=== PATIENT | female | born 1960 | race Caucasian/White ===

== ENCOUNTER 2022-12-19 12:31 | Outpatient (OUT) | payer OTHER, SELFPAY | END 2022-12-19 12:32 | disposition home or self-care (01) | LOC: PST 12:32 | PROVIDERS: PCP Family Medicine; Visit Provider Surgery | DX: Z01.818 Encounter for other preprocedural examination (principal); Z12.11 Encounter for screening for malignant neoplasm of colon ==

== ENCOUNTER 2022-12-21 09:29 | Outpatient (OUT) | payer OTHER, SELFPAY ==
--- NOTE | 2022-12-21 | MM_ITS ---
Patient: DELANO MCCORD Exam Date: 12/21/2022 : 1960 Gender:F Ordering : DR Marium Young M.D. Admission #: [id number] Family : Order #: [id number] CLICK HERE TO VIEW EXAM RADIOLOGY REPORT PROCEDURE: MM TOMOSYNTHESIS SCREENING BI COMPARISON: None. INDICATIONS: screening Calculator Name NCI Breast Cancer Risk Assessment Tool 5 Year Breast Cancer Risk 1.40% Lifetime Breast Cancer Risk 5.80% Personal Breast Cancer No Personal Ovarian Cancer No Treatments None Family Cancers None LOCATION: [facility] BREAST COMPOSITION: Heterogeneously dense,which may obscure small masses. FINDINGS: DIAGNOSTIC CATEGORY 1--NEGATIVE. RIGHT BREAST: No significant suspicious finding. LEFT BREAST: No significant suspicious finding. RECOMMENDATIONS: ROUTINE MAMMOGRAM AND CLINICAL EVALUATION IN 12 MONTHS. PLEASE NOTE: A NORMAL MAMMOGRAM DOES NOT EXCLUDE THE POSSIBILITY OF BREAST CANCER. A CLINICALLY SUSPICIOUS PALPABLE LUMP SHOULD BE BIOPSIED. Dictated by: Gianfranco Osborn M.D. on 12/22/2022 at 11:01 Approved by: Gianfranco Osborn M.D. on 12/22/2022 at 11:10
[2022-12-21 10:08] LABS: Chol HDL Ratio 4.7; Cholesterol 230 mg/dL (<=200); HDL Cholesterol 49 mg/dL (40-60); Triglycerides 79 mg/dL (<=150); VLDL CHOLESTEROL 15.8 mg/dL
== END 2022-12-21 09:30 | disposition home or self-care (01) ==
LOC: MAMMO 09:29
PROVIDERS: PCP Family Medicine; Visit Provider Family Medicine
DX: Z00.00 Encounter for general adult medical examination without abnormal findings (principal); Z12.31 Encounter for screening mammogram for malignant neoplasm of breast
CPT/HCPCS: 36415; 77063; 77067; 80061

== ENCOUNTER 2022-12-22 07:47 | Day surgery (SDC) | payer OTHER, SELFPAY ==
[2022-12-22 08:06] VITALS: BP 111/77; PULSE 86; RESP 16; TEMP 36.3; O2SAT 99; BMI 22.0
[2022-12-22] MEDS: LACTATED RINGER'S SOLUTION 1,000 ML 50 ML IV (08:14)
[2022-12-22 09:35] VITALS: BP 77/43; PULSE 70; RESP 15; TEMP 36.1; O2SAT 100
--- NOTE | 2022-12-22 09:45 | PM.GSPRC ---
Date of procedure: 12/22/22 Indications for Procedure: This patient is a 62-year-old female who presents for screening colonoscopy. The risks benefits options and potential complications of the procedure were discussed in detail with the patient and they agreed to proceed and consent was signed. Pre-op diagnosis: colon cancer screening Post-op diagnosis: other (normal exam) Procedure: colonoscopy Anesthesia: MAC Surgeon: Christoph Valenzuela Procedure Summary: The patient was brought to the endoscopy suite and placed in the left lateral decubitus position.? Under MAC the fiberoptic colonoscope was introduced into the rectum. This was gradually advanced through the colon to the cecum. The cecal landmarks were identified. The bowel prep was good. Gradual withdrawal of the colonoscope was then undertaken. No vascular polypoid or mucosal lesions were noted throughout the entire length of the colon. The anal rectal canal was unremarkable. The colon was decompressed. Digital rectal exam was unremarkable. The procedure was ended and the patient was transferred to the recovery area in stable condition. Recommended follow-up colonoscopy in ten years. Estimated blood loss (mL): 0 Specimens: none Complications: No
[2022-12-22 09:50] VITALS: BP 95/61; PULSE 68; RESP 16; O2SAT 100
[2022-12-22 10:05] VITALS: BP 106/62; PULSE 70; RESP 16; O2SAT 100
== END 2022-12-22 10:10 | disposition home or self-care (01) ==
PROVIDERS: PCP Family Medicine; Visit Provider Surgery
PROC: (CPT 45378; principal; 2022-12-22 09:00)
DX: Z12.11 Encounter for screening for malignant neoplasm of colon (principal); Z85.42 Personal history of malignant neoplasm of other parts of uterus; F20.9 Schizophrenia, unspecified; Z90.710 Acquired absence of both cervix and uterus; Z87.891 Personal history of nicotine dependence
CPT/HCPCS: 45378; J2704

== ENCOUNTER 2023-10-08 15:40 | Outpatient (OUT) | payer OTHER, SELFPAY ==
[2023-10-10 05:07] LABS: HIV Ab/p24 Ag Screen Non Reactive (Non Reactive)
== END 2023-10-08 15:41 | disposition home or self-care (01) ==
LOC: LAB 15:44
PROVIDERS: PCP Family Medicine; Visit Provider Family Medicine
DX: Z11.3 Encounter for screening for infections with a predominantly sexual mode of transmission (principal)
CPT/HCPCS: 36415; 87389

== ENCOUNTER 2023-12-08 17:57 | Emergency (ER) | payer OTHER, SELFPAY ==
[2023-12-08 17:57] VITALS: BP 116/73; PULSE 111; TEMP 36.8; O2SAT 96; BMI 24.3
--- NOTE | 2023-12-08 18:04 | ECG_ITS ---
[facility] [place] Test Date: 2023-12-08 Pat Name: DELANO MCCORD Department: Room: - Gender: Female Informatics Spec: : 1960 Requested By: JEANNETTE VELASQUEZ Order Number: [id number] Reading MD: ECHO BASS Measurements Intervals [place] Rate: 108 P: 77 [place]: 142 QRS: 80 QRSD: 86 T: 61 QT: 328 QTc: 392 Interpretive Statements 1120 Sinus tachycardia 4068 Nonspecific [place] abnormality 6220 Possible left atrial enlargement 9140 abnormal rhythm ECG Compared to ECG 09/18/2021 17:54:13 Sinus rhythm no longer present Electronically Signed On 12-09-2023 7:33:54 EDT by ECHO BASS
--- NOTE | 2023-12-08 18:10 | ED.GENADUL1 ---
HPI HPI - General Adult General Chief complaint: Psychiatric Symptoms Stated complaint: BEHAVIORAL EPISODE Time Seen by Provider: 12/08/23 18:03 Source: patient Mode of arrival: ambulance Limitations: no limitations History of Present Illness HPI narrative: The patient brought to us by the EMS for some behavioral issues, as per her son who called the EMS the patient has been having some change in her mental status, as well as behavioral status, the patient sometimes pretend that she is in catatonic The patient did mention that she have some auditory hallucination sometimes, but most of the history was obtained from the son, according to him the patient have multiple episodes of exacerbation of her depression associated with possible psychotic changes, the patient has been admitted multiple time at least 3 years ago for something similar Almost a month ago the patient started deteriorating she has been hoarding multiple issues at home and her house is a mess, according to him the patient was planned to be admitted by her psychiatrist that saw her in [facility], but because the patient had to go through the ER they tried to give her her risperidone and Seroquel that was started on to help her improve her sleeping and maybe her symptoms, but the patient has not been sleeping at least for 3 days, when the son presented today to her home he found that she is naked with multiple scratches on her lower extremities as well as her face The patient according to her history from few years ago was [place] time [place] and [place] places and that was when she was initially diagnosed few years ago But right now the patient lives by herself and the family has been trying to come and see her multiple times during the day and check on her, but they noted that there is multiple broken glass on the floor and the patient is not taking care of herself and there is a risk in her life and that is why they brought her here Related Data Home Medications ?Medication ?Instructions ?Recorded ?Confirmed escitalopram oxalate 10 mg tablet 5 mg PO DAILY 12/19/22 12/08/23 quetiapine .ROUTE 12/08/23 risperidone 0.25 mg tablet 0.25 mg PO DAILY 12/08/23 12/08/23 Allergies Allergy/AdvReac Type Severity Reaction Status Date / Time Penicillins Allergy Mild Rash Verified 12/08/23 18:09 aspirin AdvReac Mild rash Verified 12/08/23 18:09 Sulfa (Sulfonamide AdvReac Mild Rash Verified 12/08/23 18:09 Antibiotics) sulfacetamide AdvReac Mild Rash Verified 12/08/23 18:09 Opioid HPI Opioid Management Most Recent Opioid Data: No Data to Display Review of Systems ROS Status of ROS 10 or more systems reviewed and unremarkable except as noted in history and below [facility] Medical History (Updated 12/19/22 @ 12:49 by Breonna Amaya RN) Encounter for screening colonoscopy ?Z12.11 - Encounter for screening for malignant neoplasm of colon (ICD-10) Back pain ?M54.9 - Dorsalgia, unspecified (ICD-10) Nervous breakdown ?F48.8 - Other specified nonpsychotic mental disorders (ICD-10) Depression ?F32.A - Depression, unspecified (ICD-10) Anxiety ?F41.9 - Anxiety disorder, unspecified (ICD-10) Uterine cancer ?C55 - Malignant neoplasm of uterus, part unspecified (ICD-10) Surgical History (Updated 12/19/22 @ 12:49 by Breonna Amaya RN) H/O wisdom tooth extraction ?K08.409 - Partial loss of teeth, unspecified cause, unspecified class (ICD-10) History of tonsillectomy and adenoidectomy ?Z90.89 - Acquired absence of other organs (ICD-10) Family History (Updated 12/19/22 @ 12:54 by Breonna Amaya, RN) Other Family history non-contributory Social History (Updated 12/19/22 @ 12:50 by Breonna Amaya RN) Within the past year, how often did you have a drink containing alcohol: never Within the past year, how often did you have six or more drinks on one occasion: never Score interpretation: A score less than 3 is consistent with normal alcohol consumption. 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 General: Well-appearing and in no apparent distress. Skin: Warm, dry, no pallor noted. No rash. Head: Normocephalic, atraumatic. Neck: Supple, non-tender. Eye: Pupils are equal, round and EOMI. No scleral icterus. Ears, Nose, Mouth, and Throat: TM are clear, no nasal mucosal hypertrophy. Oral mucosa is moist, no posterior oropharynx erythema, uvula is mid-line Cardiovascular: Regular Rate and Rhythm without murmur, gallop or rub. Respiratory: No accessory muscle use or respiratory distress. Lungs are clear to auscultation, no wheezing, rales or rhonchi Chest Wall: no tenderness Back: No midline thoracic or lumbar vertebral tenderness. No CVA tenderness Musculoskeletal: normal ROM, no calf or popliteal tenderness, there is multiple abrasion on the knee bilaterally as well as the chin GI: Abdomen is soft, non-distended. Normal bowel sounds. No masses appreciated. No tenderness to palpation. No rebound, guarding, or rigidity noted. Neurological: A&O x1. No cranial nerve dysfunction observed. No truncal ataxia. Moves all extremities. Sensation intact. Psychiatric: Flat affect and sometimes interactive. Constitutional Vital Signs, click to edit/add: Last Vital Signs Temp 98.2 F 12/08/23 17:57 Pulse 111 H 12/08/23 17:57 Resp 18 12/08/23 17:57 BP 116/73 12/08/23 17:57 Pulse Ox 96 12/08/23 17:57 O2 Del Method Room Air 12/08/23 17:57 Course Vital Signs Vital signs: Vital Signs Temperature 98.2 F 12/08/23 17:57 Pulse Rate 111 H 12/08/23 17:57 Respiratory Rate 18 12/08/23 17:57 Blood Pressure 116/73 12/08/23 17:57 Pulse Oximetry 96 12/08/23 17:57 Oxygen Delivery Method Room Air 12/08/23 17:57 Temperature 98.2 F 12/08/23 17:57 Pulse Rate 111 H 12/08/23 17:57 Respiratory Rate 18 12/08/23 17:57 Blood Pressure 116/73 12/08/23 17:57 Pulse Oximetry 96 12/08/23 17:57 Oxygen Delivery Method Room Air 12/08/23 17:57 Medical Decision Making MDM Narrative Medical decision making narrative: The patient EKG showing sinus tachycardia with a heart rate of [address] elevation or depression The patient had a blood workup obtained to be sure that she does not have any underlying medical issue but obviously the patient is not exacerbation of her depression as well as possibly other psychiatric issues that need inpatient management mostly the patient right now does not need any pink slip and her son at the bedside and she is cooperative But in case she refuses care the patient might need to be pink slipped] Patient care will be transferred to Dr. Owens Lab Data Labs: Lab Results 12/08/23 Range/Units 18:15 WBC 9.8 (4.0-11.0) 10^3/uL RBC 4.98 (4.20-5.40) 10^6/uL Hgb 15.9 (12.0-16.0) g/dL Hct 46.8 (36.0-48.0) % MCV 94.0 (81.0-99.0) fL MCH 31.9 (26.7-34.0) pg MCHC 34.0 (29.9-35.2) g/dL RDW 11.8 (11.0-15.0) % Plt Count 276 (150-450) 10^3/uL MPV 10.5 (9.5-13.5) fL Neut % (Auto) 83.4 H (43.0-75.0) % Lymph % (Auto) 10.0 L (20.5-60.0) % Hickman % (Auto) 5.5 (1.7-12.0) % Eos % (Auto) 0.4 L (0.9-7.0) % Baso % (Auto) 0.4 (0.2-2.0) % Neut # (Auto) 8.2 H (1.4-6.5) 10^3/uL Lymph # (Auto) 1.0 L (1.2-3.8) 10^3/uL Hickman # (Auto) 0.5 (0.3-0.8) 10^3/uL Eos # (Auto) 0.0 (0.0-0.7) 10^3/uL Baso # (Auto) 0.0 (0.0-0.1) 10^3/uL Abs Immat Gran (auto) 0.03 (0.00-0.03) 10^3/uL Imm/Tot Granulo (auto) 0.3 (0.0-0.5) % Discharge Plan Discharge Patient Disposition: Still a Patient
[2023-12-08 18:28] LABS: Basophils Percent Auto 0.4 % (0.2-2.0); Eosinophils Percent Auto 0.4 % (0.9-7.0); Hematocrit 46.8 % (36.0-48.0); Hemoglobin 15.9 g/dL (12.0-16.0); Immature Granulocytes Abs Auto 0.03 10^3/uL (0.00-0.03); Immature Granulocytes Pct Auto 0.3 % (0.0-0.5); Mean Corpuscular Hemoglobin 31.9 pg (26.7-34.0); Mean Platelet Volume 10.5 fL (9.5-13.5); Monocytes Absolute Auto 0.5 10^3/uL (0.3-0.8); Monocytes Percent Auto 5.5 % (1.7-12.0); Neutrophils Absolute Auto 8.2 10^3/uL (1.4-6.5); Neutrophils Percent Auto 83.4 % (43.0-75.0); Platelet Count 276 10^3/uL (150-450); Red Blood Count 4.98 10^6/uL (4.20-5.40); Red Cell Distribution Width 11.8 % (11.0-15.0); White Blood Count 9.8 10^3/uL (4.0-11.0)
[2023-12-08 18:43] LABS: Alanine Aminotransferase 21 U/L (14-59); Albumin Globulin Ratio 1.2; Alkaline Phosphatase 74 U/L (46-116); Anion Gap 13.9; Aspartate Amino Transferase 20 U/L (15-37); BUN Creatinine Ratio 30.5; Bilirubin Total 0.8 mg/dL (0.2-1.0); Carbon Dioxide 26.4 mmol/L (21.0-32.0); Chloride 104 mmol/L (98-107); Estimated GFR (African America >60 (>=60); Estimated GFR (Non-African Ame >60 (>=60); Globulin 3.4 g/dL; Glucose 107 mg/dL (74-106); Potassium 3.3 mmol/L (3.5-5.1); Salicylate <2.8 mg/dL (<=19.9); Sodium 141 mmol/L (136-145); Total Protein 7.4 g/dL (6.4-8.2)
[2023-12-08 18:52] LABS: Acetaminophen <2.0 ug/mL (10.0-30.0); Ethanol <3 mg/dL
[2023-12-08 19:36] LABS: Amphetamine Screen Urine NEGATIVE (NEGATIVE); Barbiturates Screen Urine NEGATIVE (NEGATIVE); Benzodiazepines Screen Urine NEGATIVE (NEGATIVE); Buprenorphine Screen Urine NEGATIVE (NEGATIVE); Cannabinoid Screen Urine POSITIVE (NEGATIVE); Cocaine Screen Urine NEGATIVE (NEGATIVE); Methadone Screen Urine NEGATIVE (NEGATIVE); Methamphetamines Screen Urine NEGATIVE (NEGATIVE); Opiate Screen Urine NEGATIVE (NEGATIVE); Oxycodone Screen Urine NEGATIVE (NEGATIVE); Phencyclidine Screen Urine NEGATIVE (NEGATIVE); Tricyclic Antidepressant Urine POSITIVE (NEGATIVE)
[2023-12-08 19:51] LABS: Bilirubin Urine NEGATIVE (NEGATIVE); Blood Urine SMALL (NEGATIVE); Clarity Urine CLEAR (CLEAR); Color Urine LT. YELLOW (YELLOW); Glucose Urine UA NEGATIVE (NEGATIVE); Ketones Urine 15 mg/dL (NEGATIVE); Leukocyte Esterase Urine NEGATIVE (NEGATIVE); Nitrite Urine NEGATIVE (NEGATIVE); Protein Urine NEGATIVE (NEG/TRACE); Specific Gravity Urine >=1.030 (1.005-1.025); Urine Microscopic Indicated YES; Urobilinogen Urine 0.2 EU/dL (0.2-1.0); pH Urine 5.5 (5.0-9.0)
[2023-12-08 20:02] LABS: Internal Control Within Normal Limits; SARS-CoV-2 Ag NEGATIVE (NEGATIVE)
[2023-12-08 20:04] LABS: Bacteria Urine TRACE #/HPF (NONE SEEN); Cast Seen? NONE SEEN #/LPF (NONE SEEN); Crystals Seen? None Seen #/HPF (None Seen); Mucus Urine NONE SEEN (NONE SEEN); RBC Urine 0-2 #/HPF (0-2); Squamous Epithelial Cell Urine FEW #/LPF (NONE/RARE); Urine Culture Indicated YES
[2023-12-08] MEDS: NITROFURANTOIN MONOHYD/MAC-CRST 100 MG CAPSULE PO (20:34)
[2023-12-08 20:58] VITALS: BP 95/47; PULSE 87; O2SAT 97
[2023-12-08] MEDS: HALOPERIDOL LACTATE 5 MG/ML VIAL IM (22:04)
[2023-12-08] MEDS: LORAZEPAM 2 MG/ML VIAL IM (22:04)
[2023-12-08 22:57] VITALS: BP 115/50; PULSE 79; O2SAT 97
== END 2023-12-09 09:14 ==
PROVIDERS: Emergency Medicine; Emergency Provider Internal Medicine; PCP Family Medicine
DX: F22 Delusional disorders (principal); Z87.891 Personal history of nicotine dependence; Z79.899 Other long term (current) drug therapy
CPT/HCPCS: 36415; 80053; 80179; 80307; 80320; 80329; 81001; 85025; 87086; 87811; 93005; 96372; 99285; J1630; J2060

== ENCOUNTER 2024-05-27 10:53 | Outpatient (OUT) | payer OTHER, SELFPAY ==
--- OUTSIDE RECORDS SUMMARY | 2024-05-27 11:20 | XMS_ITS | CCD ---
Author Organization [facility] ion [facility] Care Team Providers Care Pit Clerk Name Role Phone MIKEY MARTINEZ Consulting Unavailable MEETA OSBORNE Admitting Unavailable DR MARIUM VELASQUEZ Primary Care Unavailable MEETA OSBORNE Attending Unavailable MEETA OSBORNE Consulting Unavailable MIKEY MARTINEZ Admitting Unavailable MARIO, DR NAZIA Jacobs Primary Care Unavailable CARMELA, DR STONER Consulting Unavailable MIKEY MARTINEZ Attending Unavailable MIKEY MARTINEZ Consulting Unavailable TARA INGRAM Consulting Unavailable Marium Velasquez Unavailable MD Marium Velasquez Attending Provider Marium Velasquez Attending Unavailable Marium Velasquez Admitting Unavailable NO FAMILY, PHYSICIAN Primary Care Unavailable Landry Burnett Admitting Unavailab Landry Ocasio Attending Unavailab JENELLE Spangler Referring Unavailable JENELLE HOWE Primary Care Unavailable NO FAMILY, PHYSICIAN Primary Care Provider Unava MD Landry Conde Attending Provider Jenelle Howe MD Primary Care Provider JERED CASTILLO Attending Unavailable MARIUM VELASQUEZ Primary Care Unavailable JERED CASTILLO Attending Unavailable MARIUM VELASQUEZ Referring Unavailable MARIUM VELASQUEZ Primary Care Unavailable JERED CASTILLO Attending Unavailable MARIUM VELASQUEZ E Referring Unavailable MARIUM VELASQUEZ E Primary Care Unavailable JERED CASTILLO Attending Unavailable MARIUM VELASQUEZ E Referring Unavailable RON MARIUM E Primary Care Unavailable JERED CASTILLO Attending Unavailable MARIUM VELASQUEZ E Referring Unavailable RON, MARIUM E Primary Care Unavailable JERED CASTILLO Attending Unavailable RON, MARIUM E Referring Unavailable VELASQUEZ, MARIUM E Primary Care Unavailable Allergies Allergy Classification Reported Allergen(s) Allergy Type Date of Onset Reaction(s) Facility Aspirin (1 source) Aspirin Drug Allergy 10-08-19 Unknown Reaction [facility] Penicillins (antibiotic) (1 source) Penicillins Drug Allergy 10-08-19 Unknown Reaction [facility] Sulfonamides (antibiotic) (2 sources) Sulfonamides (Antibiotic) Drug Allergy 10-08-19 Unknown Reaction, [facility] (3 sources) Penicillins Drug allergy (disorder) 09-29-19 16 Unknown Reaction [facility] (1 source) Sulfonamides (Antibiotic) Drug allergy (disorder) 09-29-19 16 [facility] (6 sources) Sulfacetamide Drug Allergy 10-08-19 Unknown, [facility] (4 sources) Substance with penicillin structure and antibacterial mechanism of action (substance) Drug allergy 07-25-19 Unknown [facility] [email or web address] Other (4 sources) Substance with sulfonamide structure and antibacterial mechanism of action (substance) Drug allergy 07-25-19 18 Unknown [facility] [email or web address] Other (4 sources) Aspir-81 Drug allergy Unknown [facility] [email or web address] Other (3 sources) Aspirin; Translations: [aspirin] Drug Allergy 10-08-19 Unknown Reaction [facility] (4 sources) Sulfonamides (Antibiotic); Translations: [Sulfa (Sulfonamide Antibiotics)] Allergy to substance 02-08-20 Unknown Reaction [facility] (1 source) Penicillins Drug allergy (disorder) 10-08-19 [facility] Repository (1 source) Sulfacetamide Drug Allergy 10-08-19 [facility] Repository (1 source) Penicillin; Translations: [PENICILLIN] Drug Allergy 02-08-20 [facility] Repository Medications Current Medications Medication Drug Class(es) Dates Sig (Normalized) Sig (Original) escitalopram 5 mg oral tablet (8 sources) Serotonin Reuptake Inhibitor Start: 12-21-2023 take 1 tablet by mouth once daily Escitalopram Oxalate Active 5 MG PO Daily December 21, 2023 12:00am [employer] tablet Orally Once a day; Note: Source Status: Taking; Provider: Ron Causey ( ) take 1 tablet by hailey th every twenty-four hours Escitalopram Oxalate 5 MG 1 tablet Orall y Once a day Active take 1 tablet by hailey th every twenty-four hours Lexapro 10 MG 1 tablet Orally Once a day Not-Taking [place] (No Known Home Meds) (2 sources) Start: 07-30-2019 [place] (No Known Home Meds) Active July 30, 2019 12:00am 24 hr paliperidone 9 mg extended release oral tablet (3 sources) Atypical Antipsychotic Start: 08-04-2019 take 1 tablet by mouth once daily at bedtime Paliperidone (Invega) 9 mg tablet extended release 24hr Active 9 MG PO Daily at bedtime August 04, 2019 12:00am Completed/Discontinued Medications Medication Drug Class(es) Dates Sig (Normalized) Sig (Original) azithromycin 250 mg oral tablet (3 sources) Macrolide Antimicrobial Start: 04-26-2022 Azithromycin 250 MG as directed Orally 2 tabs po today, then 1 tab daily x 4 more days for 5 Apr, Not-Taking dicyclomine hydrochloride 20 mg oral tablet (3 sources) Anticholinergic take 1 tablet by mouth every eight hours Dicyclomine HCl 20 MG 1 tablet Orally Three times a day for 10 days Not-Taking hydrOXYzine pamoate 25 mg oral capsule (3 sources) Antihistamine Start: 08-04-2019 End: 12-21-2023 take 25 mg by mouth every six hours Hydroxyzine Pamoate Discontinued 25 MG PO Q6H August 04, 2019 12:00am December 21, 2023 10:33am nicotine 2 mg chewing gum (3 sources) Cholinergic Nicotinic Agonist Start: 08-04-2019 End: 12-21-2023 Nicotine (Polacrilex) Discontinued 2 MG BUCCAL Every 2 hours August 04, 2019 12:00am December 21, 2023 10:31am sertraline 50 mg oral tablet (3 sources) Serotonin Reuptake Inhibitor Start: 08-04-2019 End: 12-21-2023 take 50 mg by mouth once daily in the morning Sertraline Discontinued 50 MG PO Every morning August 04, 2019 12:00am December 21, 2023 10:32am 24 hr divalproex sodium 500 mg extended release oral tablet (3 sources) Mood Stabilizer, Anti-epileptic Agent Start: 08-04-2019 End: 12-21-2023 take 500 mg by mouth once daily at bedtime Divalproex Discontinued 500 MG PO Daily at bedtime August 04, 2019 12:00am December 21, 2023 10:30am Problems Active Problems Problem Classification Problem Date Documented Da te Episodic/Chronic Anxiety disorders (7 sources) Anxiety disorder, unspecified; Translations: [Mixed anxiety and depressive disorder] Onset: 09-18-2021 Chronic Immunizations and screening for infectious disease (7 sources) Patient encounter status; Translations: [Encounter for screening for infections with a predominantly sexual mode of transmission] Onset: 10-08-2023 10-08-2023 Episodic Mood disorders (3 sources) Bipolar disorder, unspecified; Translations: [Major depressive disorder, recurrent, severe with psychotic symptoms] Onset: 09-20-2021 Chronic Noninfectious gastroenteritis (1 source) Noninfective gastroenteritis and colitis, unspecified Episodic Other gastrointestinal disorders (1 source) Diarrhea, unspecified Episodic Other screening for suspected conditions (not mental disorders or infectious disease) (2 sources) Encounter for screening mammogram for malignant neoplasm of breast; Translations: [Encounter for screening for malignant neoplasm of colon] Episodic Other upper respiratory infections (1 source) Acute upper respiratory infection, unspecified Episodic Schizophrenia and other psychotic disorders (5 sources) Schizophrenia, unspecified; Translations: [Schizophrenia] Onset: 05-13-2021 08-01-2019 Chronic Schizophrenia and other psychotic disorders (3 sources) Brief psychotic disorder; Translations: [Acute psychosis] 07-30-2019 Episodic Substance-related disorders (2 sources) Other psychoactive substance use, unspecified, uncomplicated; Translations: [Other psychoactive substance use, unspecified, uncomplicated] Onset: 12-18-2023 Episodic Unclassified (1 source) CONTACT W/AND (SUSP) EXPOS COVID-19; Translations: [CONTACT W/AND (SUSP) EXPOS COVID-19] Onset: 09-20-2021 Past or Other Problems Problem Classification Problem Date Documented Da te Episodic/Chronic Other aftercare (1 source) Other half-way (current) drug therapy; Translations: [OTH LONG-TERM CURRENT DRUG THERAPY] Onset: 05-13-2021 Episodic Residual codes; unclassified (3 sources) Disorientation, unspecified; Translations: [DISORIENTATION UNSPECIFIED] Onset: 05-10-2021 Episodic Suicide and intentional self-inflicted injury (1 source) Suicidal ideations; Translations: [SUICIDAL IDEATIONS] Onset: 05-13-2021 Episodic Results Test Name Value Interpretation Reference Range Facility Lipid Panelon 12-18-2023 Cholesterol [Mass/Vol] 189 mg/dL 0 - 1 99 mg/dL [facility] Comment on above: Cholesterol Guidelines: <200 Desirable 200-240 Borderline >240 Undesirable Cholesterol in HDL [Mass/Vol] 37 mg/dL Low 40 - PINF mg/dL [facility] Comment on above: HDL Guidelines: <40 Undesirable 40-59 Borderline >59 Desirable Cholesterol in LDL [Mass/Vol] 126 mg/dL High 0 - 100 mg/dL [facility] Comment on above: LDL Guidelines: <100 Desirable 100-129 Near to/above Desirable 130-159 Borderline >159 Undesirable Direct (measured) LDL and calculated LDL are not interchangeable tests. Cholesterol in VLDL [Mass/Vol] 25 mg/dL [facility] Cholesterol.total/Cholest aakash in HDL [Mass ratio] 5.0 {ratio} [facility] Interpretation and review of laboratory results Abnormal [facility] Triglyceride [Mass/Vol] 127 mg/dL NINF - 150 mg/dL [facility] Comment on above: Triglyceride Guidelines: <150 Desirable 150-199 Borderline 200-499 High >499 Very high Based on AHA Guidelines for fasting triglyceride, January 2012. [facility] Lipid Profileon 12-18-2023 Cholesterol [Mass/Vol] 189 mg/dL Normal 0-199 [facility] Comment on above: Result Comment: Cholesterol Guidelines: <200 Desirable 200-240 Borderline >240 Undesirable Performed By: #### L IPR #### [facility] [address] [place] [id number] [employer] Operator: Alpesh Farris MD Cholesterol in HDL [Mass/Vol] 37 mg/dL Low >40 [facility] Comment on above: Result Comment: HDL Guidelines: <40 Undesirable 40-59 Borderline >59 Desirable Performed By: #### L IPR #### [facility] [address] [place], [place] [id number] [employer] Operator: Alpesh Farris MD Cholesterol in LDL [Mass/Vol] 126 mg/dL High 0-100 [facility] Comment on above: Result Comment: LDL Guidelines: <100 Desirable 100-129 Near to/above Desirable 130-159 Borderline >159 Undesirable Direct (measured) LDL and calculated LDL are not interchangeable tests. Performed By: #### L IPR #### [id number] [place] [address] [employer] Operator: Alpesh Farris MD Cholesterol in VLDL [Mass/Vol] 25 mg/dL Normal [facility] Comment on above: Performed By: #### L IPR #### [address] [id number] [employer] Operator: Alpesh Farris MD Cholesterol.total/Cholest aakash in HDL [Mass ratio] 5.0 {ratio} Normal [facility] Comment on above: Performed By: #### L IPR #### [facility] [employer] [address] [place] [id number] [employer] Operator: Alpesh Farris MD Triglyceride [Mass/Vol] 127 mg/dL Normal <150 [facility] Comment on above: Result Comment: Triglyceride Guidelines: <150 Desirable 150-199 Borderline 200-499 High >499 Very high Based on AHA Guidelines for fasting triglyceride, January 2012. Performed By: #### L IPR #### [address] [id number] [employer] Operator: Alpesh Farris MD Basophils Auto (Bld) [#/Vol] on 12-08-2023 Basophils (Bld) [#/Vol] 0.0 10 3/uL 0.0-0.1 [facility] Basophils/100 WBC Auto (Bld) on 12-08-2023 Basophils/100 WBC (Bld) 0.4 % 0.2-2.0 [facility] Buprenorphine [Presence] in Urineon 12-08-2023 Buprenorphine Ql (U) Negative NEGATIVE [facility] Comment on above: DRUG CLASS TEST SYST EM CUT-OFF CONCENTRATIONS ARE ASFOLLOWS:AMP (Amphetamine): 500 ng/mLBAR (Barbiturates): 200 ng/mLBZO (Benzodiazepines): 150 ng/mLBUP (Buprenorphine): 10 ng/mLCOC (Cocaine): 150 ng/mLmAMP (Methamphetamine): 500 ng/mLMTD (Methadone): 200 ng/mLOPI (Opiates): 100 ng/mLOXY (Oxycodone): 100 ng/mLPCP (Phencyclidine): 25 ng/mLTHC (Cannabinoids): 50 ng/mLTCA (Trycyclic Antidepressants): 300 ng/mL Eosinophils/100 WBC Auto (Bl d)on 12-08-2023 Eosinophils/100 WBC (Bld) 0.4 % Low 0.9-7.0 [facility] Erythrocyte distribution wid th Auto (RBC) [Ratio]on 12-08-2023 Erythrocyte distribution width (RBC) [Ratio] 11.8 % 11.0-15.0 [facility] Estimated glomerular filtrat ion rate (GFR) non- Americanon 12-08-2023 GFR/1.73 sq M.predicted among non-blacks MDRD (S/P/Bld) [Vol rate/Area] mL/min/{1.73_m2} >=60 [facility] Globulin Calc (S) [Mass/Vol] on 12-08-2023 Globulin (S) [Mass/Vol] 3.4 g/dL [facility] Hematocrit Auto (Bld) [Volum e fraction]on 12-08-2023 Hematocrit (Bld) [Volume fraction] 46.8 % 36.0-48.0 [facility] Hemoglobin [Mass/volume] in Bloodon 12-08-2023 Hemoglobin (Bld) [Mass/Vol] 15.9 g/dL 12.0-16.0 [facility] Laboratory - Chemistry and C hemistry - challengeon 12-08-2023 Bilirubin Ql (U) Negative NEGATIVE [facility] Glucose (U) [Mass/Vol] [facility] Ketones Ql (U) 15 mg/dL Abnormal NEGATIVE [facility] pH (U) 5.5 [pH] 5.0-9.0 [facility] Specific gravity (U) [Rel density] >=1.030 Abnormal 1.005-1.025 [facility] Urobilinogen Qn (U) 0.2 {Talib'U}/dL 0.2-1.0 [facility] Albumin [Mass/Vol] 4.0 g/dL 3.4-5.0 [facility] ALP [Catalytic activity/Vol] 74 U/L 46-116 [facility] ALT [Catalytic activity/Vol] 21 U/L 14-59 [facility] AST [Catalytic activity/Vol] 20 U/L 15-37 [facility] Bilirubin [Mass/Vol] 0.8 mg/dL 0.2-1.0 [facility] Calcium [Mass/Vol] 10.0 mg/dL 8.5-10.1 [facility] Chloride [Moles/Vol] 104 mmol/L 98-107 [facility] CO2 [Moles/Vol] 26.4 mmol/L 21.0-32.0 [facility] Creatinine [Mass/Vol] 0.82 mg/dL 0.55-1.02 [facility] GFR/1.73 sq M.predicted MDRD (S/P/Bld) [Vol rate/Area] mL/min/{1.73_m2} >=60 [facility] Glucose [Mass/Vol] 107 mg/dL High 74-106 [facility] Potassium [Moles/Vol] 3.3 mmol/L Low 3.5-5.1 [facility] Protein [Mass/Vol] 7.4 g/dL 6.4-8.2 [facility] Sodium [Moles/Vol] 141 mmol/L 136-145 [facility] Urea nitrogen [Mass/Vol] 25.0 mg/dL High 7.0-18.0 [facility] Urea nitrogen/Creatinine [Mass ratio] 30.5 mg/mg [facility] Laboratory - Drug toxicology on 12-08-2023 Amphetamines Ql (U) Negative NEGATIVE [facility] Benzodiazepines Ql (U) Negative NEGATIVE [facility] Cocaine Ql (U) Negative NEGATIVE [facility] Opiates Ql (U) Negative NEGATIVE [facility] Phencyclidine Ql (U) Negative NEGATIVE [facility] Laboratory - Hematology and Cell countson 12-08-2023 Immature granulocytes/100 WBC (Bld) 0.3 % 0.0-0.5 [facility] Laboratory - Microbiology an d Antimicrobial susceptibilityon 12-08-2023 SARS-CoV-2 (COVID-19) RNA GAY+probe Ql (Unsp spec) Negative NEGATIVE [facility] Comment on above: This test has not be en FDA cleared or approved, but has beenauthorized by the FDA under an Emergency Use Authorization(EUA) for use by authorized laboratories certified underCLIA that meet the requirements to perform moderate or highcomplexity testing. This test has been authorized only forthe detection of proteins from SARS-CoV-2, not for any otherviruses or pathogens. The emergency use of this test isauthorized for the duration of the declaration thatcircumstances exist justifying the authorization ofemergency use of in vitro diagnostic tests for detectionand/or diagnosis of Covid-19 under section 564(b)(1) of theAct, 21 U.S.C. 360bbb-3(b)(1), unless the declaration isterminated or authorization is revoked sooner. Laboratory - Specimen inform ationon 12-08-2023 Appearance (U) CLEAR CLEAR [facility] Color (U) LT. YELLOW YELLOW [facility] Laboratory - Urinalysison Leukocyte esterase Test strip Ql (U) Negative NEGATIVE [facility] Mucus Ql (Urine sed) NONE SEEN NONE SEEN [facility] Nitrite Ql (U) Negative NEGATIVE [facility] Protein Ql (U) Negative NEG/TRACE [facility] Leukocytes [#/volume] correc keeley for nucleated erythrocytes in Blood by Automated counon 12-08-2023 WBC corrected for nucl RBC Auto (Bld) [#/Vol] 9.8 10 3/uL 4.0-11.0 [facility] Lymphocytes Auto (Bld) [#/Vo l]on 12-08-2023 Lymphocytes (Bld) [#/Vol] 1.0 10 3/uL Low 1.2-3.8 [facility] Lymphocytes/100 WBC Auto (Bl d)on 12-08-2023 Lymphocytes/100 WBC (Bld) 10.0 % Low 20.5-60.0 [facility] MCH Auto (RBC) [Entitic mass ]on 12-08-2023 MCH (RBC) [Entitic mass] 31.9 pg 26.7-34.0 [facility] MCHC Auto (RBC) [Mass/Vol]on 12-08-2023 MCHC (RBC) [Mass/Vol] 34.0 g/dL 29.9-35.2 [facility] MCV Auto (RBC) [Entitic vol] on 12-08-2023 MCV (RBC) [Entitic vol] 94.0 fL 81.0-99.0 [facility] Methadone [Presence] in Urin e by Screen methodon 12-08-2023 Methadone Screen Ql (U) Negative NEGATIVE [facility] Monocytes Auto (Bld) [#/Vol] on 12-08-2023 Monocytes (Bld) [#/Vol] 0.5 10 3/uL 0.3-0.8 [facility] Monocytes/100 WBC Auto (Bld) on 12-08-2023 Monocytes/100 WBC (Bld) 5.5 % 1.7-12.0 [facility] Neutrophils Auto (Bld) [#/Vo l]on 12-08-2023 Neutrophils (Bld) [#/Vol] 8.2 10 3/uL High 1.4-6.5 [facility] Neutrophils/100 WBC Auto (Bl d)on 12-08-2023 Neutrophils/100 WBC (Bld) 83.4 % High 43.0-75.0 [facility] No Panel Informationon 12-07 Urine Bacteria TRACE #/HPF Abnormal NONE SEEN [facility] Urine Barbiturates Screen Negative NEGATIVE [facility] Urine Culture Reflexed YES [facility] Urine Marijuana (THC) Screen Positive Abnormal NEGATIVE [facility] Urine Methamphetamines Screen Negative NEGATIVE [facility] Urine Microscopic Review YES [facility] Urine Occult Blood SMALL Abnormal NEGATIVE [facility] Urine Other Casts NONE SEEN #/LPF NONE SEEN [facility] Urine Other Crystals None Seen #/HPF None Seen [facility] Urine RBC 0-2 #/HPF 0-2 [facility] Urine Squamous Epithelial Cells FEW #/LPF Abnormal NONE/RARE [facility] Urine WBC 5-10 #/HPF Abnormal NONE SEEN [facility] Acetaminophen Level <2.0 ug/mL Low 10.0-30.0 [facility] Eosinophils # (Auto) 0.0 10 3/uL 0.0-0.7 [facility] Ethyl Alcohol Level <3 mg/dL [facility] Comment on above: NOTE: 80 mg/dl is th e legal limit for a blood alcohol level Immature Granulocyte # (Auto) 0.03 10 3/uL 0.00-0.03 [facility] Salicylates Level <2.8 mg/dL <=19.9 [facility] Platelet mean volume Auto (B ld) [Entitic vol]on 12-08-2023 Platelet mean volume (Bld) [Entitic vol] 10.5 fL 9.5-13.5 [facility] Platelets Auto (Bld) [#/Vol] on 12-08-2023 Platelets (Bld) [#/Vol] 276 10 3/uL 150-450 [facility] RBC Auto (Bld) [#/Vol]on RBC (Bld) [#/Vol] 4.98 10 6/uL 4.20-5.40 [facility] Serum or plasma albumin/glob ulin mass ratioon 12-08-2023 Albumin/Globulin [Mass ratio] 1.2 {ratio} [facility] Serum or plasma anion gap de terminationon 12-08-2023 Anion gap [Moles/Vol] 13.9 mmol/L [facility] Urine tricyclic antidepressa nt measurementon 12-08-2023 Tricyclic antidepressants (U) [Mass/Vol] Positive Abnormal NEGATIVE [facility] oxyCODONE+oxyMORphone [Prese nce] in Urine by Screen methodon 12-08-2023 oxyCODONE+oxyMORphone Screen Ql (U) Negative NEGATIVE [facility] Chlamydia trachomatis rRNA [ Presence] in Cervix by GAY with probe detectionOrdered By: Marium Velasquez on 10-08-2023 C. trachomatis rRNA GAY+probe Ql (Cvx) Negative Negative [facility] Chlamydia/GC Amplificationon 10-08-2023 Chlamydia Trachomotis, GAY Negative Normal Negative [facility] Comment on above: Performed By: #### G CCHLAMAMP, PAP #### [facility] , Neisseria Gonorrhoeae, GAY Negative Normal Negative [facility] Comment on above: Result Comment: Perf ormed at: =G - [facility] [address] [id number] [employer] Operator: Neeru Gupta MD, Phone: [phone] PERFORMED BY: [place] [id number] [place] [id number] PATHOLOGIST WRITER PARVEZ DEVI M.D. Performed By: #### G CCHLAMAMP, PAP #### [facility] , HIV 1 and HIV-2 antibody ass ay with HIV-1 p24 antigen detectionon 10-08-2023 HIV 1+2 Ab+HIV1 p24 Ag IA Ql Non-Reactive Non Reactive [facility] Comment on above: HIV-1/HIV-2 antibodi es and HIV-1 p24 antigen were NOTdetected. There is no laboratory evidence of HIV infection.HIV NegativePerformed at: - [facility] [address] [id number] Director: Santino Rodriguez PhD, Phone: [phone] Laboratory - Microbiology an d Antimicrobial susceptibilityOrdered By: Marium Velasquez on 10-08-2023 C. trachomatis DNA GAY+probe Ql (Unsp spec) Negative Negative [facility] N. gonorrhoeae DNA GAY+probe Ql (Unsp spec) Negative Negative [facility] Comment on above: Performed at: =G - [facility] [address] [id number] Director: Neeru Gupta MD, Phone: [phone] Neisseria gonorrhoeae rRNA [ Presence] in Cervix by GAY with probe detectionOrdered By: Marium Velasquez on 10-08-2023 N. gonorrhoeae rRNA GAY+probe Ql (Cvx) Negative Negative [facility] [place] Comment on above: Performed at: WB - [address] [id number] Director: Neeru Gupta MD, Phone: [phone] at: =G - [facility] [id number], PAPO [id number] Director: Neeru Gupta MD, Phone: [phone] No Panel InformationOrdered By: Marium Velasquez on 10-08-2023 IG Pap w/Ct-Ng & HPV (Off-Site) Note . [facility] [place] Comment on above: TESTS RESULT FLAG UN ITS REF RANGE LAB --- Clinician Provided Cytology Information No. of containers..01 ThinPrep VialDIAGNOSIS: 01 NEGATIVE FOR INTRAEPITHELIAL LESION OR MALIGNANCY. CELLULAR CHANGES ASSOCIATED WITH ATROPHY ARE PRESENT.Specimen adequacy: 01 Satisfactory for evaluation. Endocervical component may not be distinguished in cases of atrophy.Performed by: 01 Belle Nelson, Sanding Machine [employer] ([employer]). 01Note: Note 01 The Pap smear is a screening test designed to aid in the detection of premalignant and malignant conditions of the uterine cervix. It is not a diagnostic procedure and should not be used as the sole means of detecting cervical cancer. Both false-positive and false-negative reports do occur.Test Methodology: Note 01 This liquid based ThinPrep(R) pap test was screened with the use of an image guided system.. 01 The HPV DNA reflex criteria were not met with this specimen result therefore, no HPV testing was performed. FLAG LEGEND: L-Low Normal,H-High Normal,LL-Alert Low,HH-Alert High <-Panic Low,>-Panic High,A-Abnormal,AA-Critical Abnormal --------Performed at:[address] [facility] [address] [id number] Neeru Gupta MD, Pap IG, CtNg, rfx HPV Aptima on 10-08-2023 PAP Chlamydia GAY Negative Normal Negative [facility] Comment on above: Performed By: #### G CCHLAMAMP, PAP #### [facility] , PAP Gonococcus Negative Normal Negative [facility] Comment on above: Result Comment: Perf ormed at: WB - [facility] [address] [id number] [employer] Operator: Neeru Gupta MD, Phone: [phone] Performed at: =G - [facility] [address] [id number] [employer] Operator: Neeru Gupta MD, Phone: [phone] PERFORMED BY: [address] [place] [address] PATHOLOGIST WRITER PARVEZ DEVI M.D. Performed By: #### G CCHLAMAMP, PAP #### [facility] , Pap IG Note Normal . [facility] Comment on above: Result Comment: TEST S RESULT FLAG UNITS REF RANGE LAB Clinician Provided Cytology Information No. of containers..01 ThinPrep Vial DIAGNOSIS: 01 NEGATIVE FOR INTRAEPITHELIAL LESION OR MALIGNANCY. CELLULAR CHANGES ASSOCIATED WITH ATROPHY ARE PRESENT. Specimen adequacy: 01 Satisfactory for evaluation. Endocervical component may not be distinguished in cases of atrophy. Performed by: Gigi Nelson Sand[employer] Machine [employer] ([facility]) . 01 Note: Note 01 The Pap smear is a screening test designed to aid in the detection of premalignant and malignant conditions of the uterine cervix. It is not a diagnostic procedure and should not be used as the sole means of detecting cervical cancer. Both false-positive and false-negative reports do occur. Test Methodology: Note 01 This liquid based ThinPrep(R) pap test was screened with the use of an image guided system. . 01 The HPV DNA reflex criteria were not met with this specimen result therefore, no HPV testing was performed. FLAG LEGEND: L-Low Normal,H-High Normal,LL-Alert Low,HH-Alert High <-Panic Low,>-Panic High,A-Abnormal,AA-Critical Abnormal Performed at: 01 WB [facility] [address] [id number] Neeru Gupta MD, Performed By: #### G CCHLAMAMP, PAP #### [facility] , ACETAMINOPHENon 09-18-2021 Acetaminophen [Mass/Vol] ug/mL Normal 10.0-30.0 [facility] Comment on above: Performed By: #### C MP, SALYC, ACET #### [facility] [address] [place] [address] Dr. Indio Edwards CBC AUTO DIFFon 09-18-2021 BASO # 0.1 103/ul Normal 0.0-0.1 [facility] Comment on above: Performed By: #### C BC #### [facility] [address] [place] [address] Dr. Indio Edwards Basophils/100 WBC (Bld) 0.6 % Normal 0.2-2.0 [facility] Comment on above: Performed By: #### C BC #### [facility] [address] [place] [address] Dr. Indio Edwards EO # 0.1 103/ul Normal 0.0-0.7 [facility] Comment on above: Performed By: #### C BC #### [facility] [address] [place] [address] Dr. Indio Edwards Eosinophils/100 WBC (Bld) 1.2 % Normal 0.9-7.0 [facility] Comment on above: Performed By: #### C BC #### [facility] [address] [place] [address] Dr. Indio Edwards Erythrocyte distribution width (RBC) [Ratio] 11.9 % Normal 11.0-15.0 [facility] Comment on above: Performed By: #### C BC #### [facility] [address] [place] [address] Dr. Indio Edwards Hematocrit (Bld) [Volume fraction] 47.4 % Normal 36.0-48.0 [facility] Comment on above: Performed By: #### C BC #### [facility] [address] [place] [address] Dr. Indio Edwards Hemoglobin (Bld) [Mass/Vol] 15.7 g/dL Normal 12.0-16.0 [facility] Comment on above: Performed By: #### C BC #### [facility] [address] [place] [address] Dr. Indio Edwards IG # 0.03 10e3/ul Normal 0.00-0.03 [facility] Comment on above: Performed By: #### C BC #### [facility] [address] [place] [address] Dr. Indio Edwards IG % 0.4 % Normal 0.0-0.5 [facility] Comment on above: Performed By: #### C BC #### [facility] [address] [place] [address] Dr. Indio Edwards LYMPH # 1.8 103/ul Normal 1.2-3.8 [facility] Comment on above: Performed By: #### C BC #### [facility] [address] [place] [address] Dr. Indio Edwards Lymphocytes/100 WBC (Bld) 21.8 % Normal 20.5-60.0 [facility] Comment on above: Performed By: #### C BC #### [facility] [address] [place] [address] Dr. Indio Edwards MANUAL DIFF REQ NO Normal [facility] Comment on above: Performed By: #### C BC #### [facility] [address] [place] [address] Dr. Indio Edwards MCH (RBC) [Entitic mass] 31.5 pg Normal 26.7-34.0 [facility] Comment on above: Performed By: #### C BC #### [facility] [address] [place] [address] Dr. Indio Edwards MCHC (RBC) [Mass/Vol] 33.1 g/dL Normal 29.9-35.2 [facility] Comment on above: Performed By: #### C BC #### [facility] [address] [place] [address] Dr. Indio Edwards MCV (RBC) [Entitic vol] 95.2 fL Normal 81.0-99.0 [facility] Comment on above: Performed By: #### C BC #### [facility] [address] [place] [address] Dr. Indio Edwards MONO # 0.5 103/ul Normal 0.3-0.8 [facility] Comment on above: Performed By: #### C BC #### [facility] [address] [place] [address] Dr. Indio Edwards Monocytes/100 WBC (Bld) 6.2 % Normal 1.7-12.0 [facility] Comment on above: Performed By: #### C BC #### [facility] [address] [place] [address] Dr. Indio Edwards NEUT # 5.8 103/ul Normal 1.4-6.5 [facility] Comment on above: Performed By: #### C BC #### [facility] [address] [place] [address] Dr. Indio Edwards Neutrophils/100 WBC (Bld) 69.8 % Normal 43.0-75.0 [facility] Comment on above: Performed By: #### C BC #### [facility] [address] [address] [address] Indio Edwards Platelet mean volume (Bld) [Entitic vol] 10.2 fL Normal 9.5-13.5 [facility] Comment on above: Performed By: #### C BC #### [facility] [address] [place] [address] Dr. Indio Edwards PLT 246 103/ul Normal 150-450 [facility] Comment on above: Performed By: #### C BC #### [facility] [address] [place] [address] Dr. Indio Edwards RBC 4.98 106/ul Normal 4.20-5.40 [facility] Comment on above: Performed By: #### C BC #### [facility] [address] [place] [address] Dr. Indio Edwards WBC 8.3 103/ul Normal 4.0-11.0 [facility] Comment on above: Performed By: #### C BC #### [facility] [address] [place] [address] Dr. Indio Edwards [facility] SARS-CoV-2 (COVID-19) RNA GAY+probe Ql (Unsp spec) Not detected Normal NOT DETECTED [facility] Comment on above: Result Comment: When diagnostic testing is negative, the possibility of a false negative should be considered in the context of a patient's recent exposures and the presence of clinical signs and symptoms consistent with SARS-CoV-2. This test is not yet approved or cleared by the [place] FDA. When there are no FDA-approved or cleared tests available, and other criteria are met, FDA can make tests available under an emergency access mechanism called an Emergency Use Authorization (EUA). The EUA for this test is supported by the Branch Lead of Health and Human Service's declaration that circumstances exist to justify the emergency use of in vitro diagnostics for the detection and/or diagnosis of the virus that causes COVID-19. This EUA will remain in effect for the duration of the COVID-19 declaration justifying emergency of IVDs, unless it is terminated or revoked by the FDA (after which the test may no longer be used). Performed By: #### C VDTBH #### [facility] [address] [place] [address] Dr. Indio Edwards DRUG SCREEN RAPID (URINE)on 09-18-2021 AMP Negative Normal NEGATIVE [facility] Comment on above: Performed By: #### E RUR, DRUGRPD #### [facility] [address] [place] [address] Dr. Indio Edwards BAR Negative Normal NEGATIVE [facility] Comment on above: Performed By: #### E RUR, DRUGRPD #### [facility] [address] [place] [address] Dr. Indio Edwards BUP Negative Normal NEGATIVE [facility] Comment on above: Performed By: #### E RUR, DRUGRPD #### [facility] [address] [place] [address] Dr. Indio Edwards BZO Negative Normal NEGATIVE [facility] Comment on above: Performed By: #### E RUR, DRUGRPD #### [facility] [address] [place] [address] Dr. Indio Edwards ABRAN Negative Normal NEGATIVE [facility] Comment on above: Performed By: #### E RUR, DRUGRPD #### [facility] [address] [place] [address] Dr. Indio Edwards CUT-OFFS SEE BELOW Normal [facility] Comment on above: Result Comment: AMP (Amphetamine): 500ng/mL, BAR (Barbituates): 200 ng/mL, BZO (Benzodiazepines): 150 ng/mL, BUP (Buprenorphine): 10 ng/mL, ABRAN (Cocaine): 150 ng/mL, mAMP (Methamphetamine): 500 ng/mL, MTD (Methadone): 200 ng/mL, OPI (Opiates): 100 ng/mL, OXY (Oxycodone): 100 ng/mL, PCP (Phencyclidine): 25 ng/mL, PPX (Propoxyphene): 300 ng/mL, THC (Cannabinoids): 50 ng/mL, TCA (Trycyclic Antidepressants): 300 ng/mL Performed By: #### E RUR, DRUGRPD #### [facility] [address] [place] [address] Dr. Indio Edwards DRUG CUT HEADER DRUG CLASS TEST SYSTEM CUT-OFF CONCENTRATIONS ARE FOLLOWS: Normal [facility] Comment on above: Performed By: #### E RUR, DRUGRPD #### [facility] [address] [place] [address] Dr. Indio Edwards mAMP Negative Normal NEGATIVE [facility] Comment on above: Performed By: #### E RUR, DRUGRPD #### [facility] [address] [place] [address] Dr. Indio Edwards MTD Negative Normal NEGATIVE [facility] Comment on above: Performed By: #### E RUR, DRUGRPD #### [facility] [address] [place] [address] Dr. Indio Edwards OPI Negative Normal NEGATIVE [facility] Comment on above: Performed By: #### E RUR, DRUGRPD #### [facility] [address] [place] [address] Dr. Indio Edwards OXY Negative Normal NEGATIVE [facility] Comment on above: Performed By: #### E RUR, DRUGRPD #### [facility] [address] [place] [address] Dr. Indoi Edwards PCP Negative Normal NEGATIVE [facility] Comment on above: Performed By: #### E RUR, DRUGRPD #### [facility] [address] [place] [address] Dr. Indio Edwards PPX Negative Normal NEGATIVE [facility] Comment on above: Performed By: #### E RUR, DRUGRPD #### [facility] [address] [place] [address] Dr. Indio Edwards TCA Negative Normal NEGATIVE [facility] Comment on above: Performed By: #### E RUR, DRUGRPD #### [facility] [address] [place] [address] Dr. Indio Edwards THC Positive Abnormal NEGATIVE [facility] Comment on above: Performed By: #### E RUR, DRUGRPD #### [facility] [address] [place] [address] Dr. Indio Edwards ER URINE PROFILEon 2 Bilirubin Ql (U) SMALL Abnormal NEGATIVE [facility] Comment on above: Performed By: #### E RUR, DRUGRPD #### [facility] [address] [place] [address] Dr. Indio Edwards Clarity (U) SL CLOUDY Abnormal CLEAR [facility] Comment on above: Performed By: #### E RUR, DRUGRPD #### [facility] [address] [place] [address] Dr. Indio Edwards Color (U) YELLOW Normal YELLOW [facility] Comment on above: Performed By: #### E RUR, DRUGRPD #### [facility] [address] [place] [address] Dr. Indio RAMOS A micrscopic examination will be performed if indicated. Normal [facility] Comment on above: Performed By: #### E RUR, DRUGRPD #### [facility] [address] [place] [address] Dr. Indio Edwards Glucose Ql (U) Negative Normal NEGATIVE [facility] Comment on above: Performed By: #### E RUR, DRUGRPD #### [facility] [address] [place] [address] Dr. Indio Edwards Hemoglobin Ql (U) Negative Normal NEGATIVE [facility] Comment on above: Performed By: #### E RUR, DRUGRPD #### [facility] [address] [place] [address] Dr. Indio Edwards Ketones Ql (U) 40 mg/dl Abnormal NEGATIVE [facility] Comment on above: Performed By: #### E RUR, DRUGRPD #### [facility] [address] [place] [address] Dr. Indio Edwards LEUKOCYTES Negative Normal NEGATIVE [facility] Comment on above: Performed By: #### E RUR, DRUGRPD #### [facility] [address] [place] [address] Dr. Indio Edwards Nitrite Ql (U) Negative Normal NEGATIVE [facility] Comment on above: Performed By: #### E RUR, DRUGRPD #### [facility] [address] [place] [address] Dr. Indio Edwards pH (U) 6.0 [pH] Normal 5-9 [facility] Comment on above: Performed By: #### Leia PABLO DRUGRPD #### [facility] [address] [place] [address] Dr. Indio Edwards SPEC GRAVITY 1.025 Normal 1.005-<=1.02 5 [facility] Comment on above: Performed By: #### Leia PABLO DRUGRPD #### [facility] [address] [place] [address] Dr. Indio Edwards UA PROTEIN Negative Normal NEGATIVE/ TRACE [facility] Comment on above: Performed By: #### Leia PABLO DRUGRPD #### [facility] [address] [place] [address] Dr. Indio Edwards UR MICRO IND NOT INDICATED Normal [facility] Comment on above: Performed By: #### eLia PABLO DRUGRPD #### [facility] [address] [place] [address] Dr. Indio Edwards Urobilinogen Qn (U) 0.2 {Talib'U}/dL Normal 0.2 - 1. 0 [facility] Comment on above: Performed By: #### Leia PABLO DRUGRPD #### [facility] [address] [place] [address] Dr. Indio Edwards ETHANOL (BLD ALC)on 09-19-19 22 ALC NOTE NOTE: 80 mg/dl is the legal limit for a blood alcohol level Normal [facility] Comment on above: Performed By: #### E TH #### [facility] [address] [place] [address] Dr. Indio Edwards Ethanol [Mass/Vol] mg/dL Normal [facility] Comment on above: Performed By: #### E TH #### [facility] [address] [place] [address] Dr. Indio Edwards PROF 14(COMP METB)on 022 Albumin [Mass/Vol] 4.0 g/dL Normal 3.4-5.0 [facility] Comment on above: Performed By: #### C MP, SALYC, ACET #### [facility] [address] [address] [address] Indio Edwards Albumin/Globulin [Mass ratio] 1.3 {ratio} Normal [facility] Comment on above: Performed By: #### C MP, SALYC, ACET #### [facility] [address] [address] [address] Indio Edwards ALP [Catalytic activity/Vol] 84 U/L Normal 46-116 [facility] Comment on above: Performed By: #### C MP, SALYC, ACET #### [facility] [address] [address] [address] Indio Edwards ALT [Catalytic activity/Vol] 21 U/L Normal 14-59 [facility] Comment on above: Performed By: #### C MP, SALYC, ACET #### [facility] [address] [address] [address] Indio Edwards Anion gap [Moles/Vol] 15.8 mmol/L Normal [facility] Comment on above: Performed By: #### C MP, SALYC, ACET #### [facility] [address] [address] [address] Indio Edwards AST [Catalytic activity/Vol] 11 U/L Critically low 15-37 [facility] Comment on above: Performed By: #### C MP, SALYC, ACET #### [facility] [address] [address] [address] Indio Edwards Bilirubin [Mass/Vol] 0.8 mg/dL Normal 0.2-1.0 [facility] Comment on above: Performed By: #### C MP, SALYC, ACET #### [facility] [address] [address] [address] Indio Edwards Calcium [Mass/Vol] 9.3 mg/dL Normal 8.5-10.1 [facility] Comment on above: Performed By: #### C MP, SALYC, ACET #### [facility] [address] [address] [address] Indio Edwards Chloride [Moles/Vol] 107 mmol/L Normal 98-107 [facility] Comment on above: Performed By: #### C CECILIO CHACON, ACET #### [facility] [address] [address] [address] Indio Edwards CO2 [Moles/Vol] 24.1 mmol/L Normal 21.0-32.0 [facility] Comment on above: Performed By: #### C CECILIO CHACON, ACET #### [facility] [address] [address] [address] Indio Edwards Creatinine [Mass/Vol] 0.77 mg/dL Normal 0.55-1.02 [facility] Comment on above: Performed By: #### C CECILIO CHACON, ACET #### [facility] [address] [place] [address] Dr. Indio Edwards EGFR-AF QATARI >60 Normal >=60 [facility] Comment on above: Performed By: #### C CECILIO CHACON, ACET #### [facility] [address] [place] [address] Dr. Indio Edwards EGFR-NON AF QATARI >60 Normal >=60 [facility] Comment on above: Performed By: #### C CECILIO CHACON, ACET #### [facility] [address] [place] [address] Dr. Indio Edwards Globulin (S) [Mass/Vol] 3.1 g/dL Normal [facility] Comment on above: Performed By: #### C CECILIO CHACON, ACET #### [facility] [address] [place] [address] Dr. Indio Edwards Glucose [Mass/Vol] 88 mg/dL Normal 74-106 [facility] Comment on above: Performed By: #### C CECILIO CHACON, ACET #### [facility] [address] [place] [address] Dr. Indio Edwards Potassium [Moles/Vol] 3.9 mmol/L Normal 3.5-5.1 [facility] Comment on above: Performed By: #### C CECILIO CHACON, ACET #### [facility] [address] [place] [address] Dr. Indio Edwards Protein [Mass/Vol] 7.1 g/dL Normal 6.4-8.2 [facility] Comment on above: Performed By: #### C CECILIO CHACON, ACET #### [facility] [address] [address] [address] Indio Edwards Sodium [Moles/Vol] 143 mmol/L Normal 136-145 [facility] Comment on above: Performed By: #### C CECILIO CHACON, ACET #### [facility] [address] [address] [address] Indio Edwards Urea nitrogen [Mass/Vol] 9.0 mg/dL Normal 7.0-18.0 [facility] Comment on above: Performed By: #### C CECILIO CHACON, ACET #### [facility] [address] [address] [address] Indio Edwards Urea nitrogen/Creatinine [Mass ratio] 11.7 mg/mg Normal [facility] Comment on above: Performed By: #### C CECILIO CHACON, ACET #### [facility] [address] [address] [address] Indio Edwards SALICYLATEon 09-18-2021 SALICYLATE 1.4 mg/dL Normal <=19.9 [facility] Comment on above: Performed By: #### C CECILIO CHACON, ACET #### [facility] [address] [address] [address] Indio Edwards Comprehensive Metabolic Pane piyush 05-13-2021 Albumin [Mass/Vol] 3.5 g/dL Normal 3.5-4.6 [facility] Comment on above: Performed By: #### C MP #### [facility] [address] [place] [address] ALP [Catalytic activity/Vol] 71 U/L Normal 40-130 [facility] Comment on above: Performed By: #### C MP #### [facility] [address] [place] [address] ALT [Catalytic activity/Vol] 15 U/L Normal 0-33 [facility] Comment on above: Performed By: #### C MP #### [facility] [address] [place] [address] Anion gap [Moles/Vol] 10 mmol/L Normal 9-15 [facility] Comment on above: Performed By: #### C MP #### [facility] [address] [address] AST [Catalytic activity/Vol] 21 U/L Normal 0-35 [facility] Comment on above: Result Comment: Spec imen hemolysis has exceeded the interference as defined by Jamar. Value may be falsely increased. Suggest recollection if clinically indicated. Performed By: #### C MP #### [facility] [address] [place] [address] Bilirubin [Mass/Vol] 0.3 mg/dL Normal 0.2-0.7 [facility] Comment on above: Performed By: #### C MP #### [facility] [address] [place] [address] Calcium [Mass/Vol] 9.0 mg/dL Normal 8.5-9.9 [facility] Comment on above: Performed By: #### C MP #### [facility] [address] [address] Chloride [Moles/Vol] 110 mmol/L Critically high 95-107 [facility] Comment on above: Performed By: #### C MP #### [facility] [address] [address] CO2 [Moles/Vol] 22 mmol/L Normal 20-31 [facility] Comment on above: Performed By: #### C MP #### [facility] [address] [place] [address] Creatinine [Mass/Vol] 0.60 mg/dL Normal 0.50-0.90 [facility] Comment on above: Performed By: #### C MP #### [facility] [address] [place] [address] GFR >60.0 Normal >60 [facility] Comment on above: Result Comment: >60 mL/min/1.73m2 EGFR, calc. for ages 18 and older using the MDRD formula (not corrected for weight), is valid for stable renal function. Performed By: #### C MP #### [facility] [address] [place] [address] GFR/1.73 sq M.predicted among blacks MDRD (S/P/Bld) [Vol rate/Area] mL/min/{1.73_m2} Normal >60 [facility] Comment on above: Result Comment: >60 mL/min/1.73m2 EGFR, calc. for ages 18 and older using the MDRD formula (not corrected for weight), is valid for stable renal function. Performed By: #### C MP #### [facility] [address] [place] [address] Globulin (S) [Mass/Vol] 2.6 g/dL Normal 2.3-3.5 [facility] Comment on above: Performed By: #### C MP #### [facility] [address] [address] Glucose [Mass/Vol] 82 mg/dL Normal 70-99 [facility] Comment on above: Performed By: #### C MP #### [facility] [address] [address] Potassium [Moles/Vol] 4.4 mmol/L Normal 3.4-4.9 [facility] Comment on above: Performed By: #### C MP #### [facility] [address] [place] [address] Protein [Mass/Vol] 6.1 g/dL Low 6.3-8.0 [facility] Comment on above: Performed By: #### C MP #### [facility] [address] [place] [address] Sodium [Moles/Vol] 142 mmol/L Normal 135-144 [facility] Comment on above: Performed By: #### C MP #### [facility] [address] [place] [address] Urea nitrogen [Mass/Vol] 10 mg/dL Normal 8-23 [facility] Comment on above: Performed By: #### C MP #### [facility] [address] [place] [address] Hemoglobin A1con 05-13-2021 HbA1c (Bld) [Mass fraction] 5.0 % Normal 4.8-5.9 [facility] Comment on above: Performed By: #### A 1C #### [facility] [address] [place] [address] Covid-19 PCR (CVDTBH)on SARS-CoV-2 (COVID-19) RNA GAY+probe Ql (Unsp spec) Not detected Normal NOT DETECTED [facility] Comment on above: Result Comment: This test is not yet approved or cleared by the [place] FDA. When there are no FDA-approved or cleared tests available, and other criteria are met, FDA can make tests available under an emergency access mechanism called an Emergency Use Authorization (EUA). The EUA for this test is supported by the [place] of Health and Human Service's (HHS's) declaration that circumstances exist to justify the emergency use of in vitro diagnostics for the detection and/or diagnosis of the virus that causes COVID-19. This EUA will remain in effect (meaning this test can be used) for the duration of the COVID-19 declaration justifying emergency of IVDs, unless it is terminated or revoked by FDA (after which the test may no longer be used). When diagnostic testing is negative, the possibility of a false negative should be considered in the context of a patient's recent exposures and the presence of clinical signs and symptoms consistent with SARS-CoV-2. Performed By: #### Leia PABLO DRUGRPD #### [facility] [address] [place] [address] Dr. Indio Edwards DRUG SCREEN RAPID (URINE)on 05-11-2021 AMP Negative Normal NEGATIVE [facility] Comment on above: Performed By: #### Leia PABLO DRUGRPD #### [facility] [address] [address] [address] Indio Edwards BAR Negative Normal NEGATIVE [facility] Comment on above: Performed By: #### E RUR, DRUGRPD #### [facility] [address] [place] [address] Dr. Indio Edwards BUP Negative Normal NEGATIVE [facility] Comment on above: Performed By: #### E RUR, DRUGRPD #### [facility] [address] [place] [address] Dr. Indio Edwards BZO Negative Normal NEGATIVE [facility] Comment on above: Performed By: #### E RUR, DRUGRPD #### [facility] [address] [place] [address] Dr. Indio Edwards ABRAN Negative Normal NEGATIVE [facility] Comment on above: Performed By: #### E RUR, DRUGRPD #### [facility] [address] [place] [address] Dr. Indio Edwards CUT-OFFS SEE BELOW Normal [facility] Comment on above: Result Comment: AMP (Amphetamine): 500ng/mL, BAR (Barbituates): 200 ng/mL, BZO (Benzodiazepines): 150 ng/mL, BUP (Buprenorphine): 10 ng/mL, ABRAN (Cocaine): 150 ng/mL, mAMP (Methamphetamine): 500 ng/mL, MTD (Methadone): 200 ng/mL, OPI (Opiates): 100 ng/mL, OXY (Oxycodone): 100 ng/mL, PCP (Phencyclidine): 25 ng/mL, PPX (Propoxyphene): 300 ng/mL, THC (Cannabinoids): 50 ng/mL, TCA (Trycyclic Antidepressants): 300 ng/mL Performed By: #### E RUR, DRUGRPD #### [facility] [address] [place] [address] Dr. Indio Edwards DRUG CUT HEADER DRUG CLASS TEST SYSTEM CUT-OFF CONCENTRATIONS ARE FOLLOWS: Normal [facility] Comment on above: Performed By: #### E RUR, DRUGRPD #### [facility] [address] [place] [address] Dr. Indio Edwards mAMP Negative Normal NEGATIVE [facility] Comment on above: Performed By: #### E RUR, DRUGRPD #### [facility] [address] [place] [address] Dr. Indio Edwards MTD Negative Normal NEGATIVE [facility] Comment on above: Performed By: #### E RUR, DRUGRPD #### [facility] [address] [place] [address] Dr. Indio Edwards OPI Negative Normal NEGATIVE [facility] Comment on above: Performed By: #### E RUR, DRUGRPD #### [facility] [address] [place] [address] Dr. Indio Edwards OXY Negative Normal NEGATIVE [facility] Comment on above: Performed By: #### E RUR, DRUGRPD #### [facility] [address] [place] [address] Dr. Indio Edwards PCP Negative Normal NEGATIVE [facility] Comment on above: Performed By: #### E RUR, DRUGRPD #### [facility] [address] [place] [address] Dr. Indio Edwards PPX Negative Normal NEGATIVE [facility] Comment on above: Performed By: #### E RUR, DRUGRPD #### [facility] [address] [place] [address] Dr. Indio Edwards TCA Negative Normal NEGATIVE [facility] Comment on above: Performed By: #### E RUR, DRUGRPD #### [facility] [address] [place] [address] Dr. Indio Edwards THC Positive Abnormal NEGATIVE [facility] Comment on above: Performed By: #### E RUR, DRUGRPD #### [facility] [address] [place] [address] Dr. Indio Edwards ER URINE PROFILEon 2 Bilirubin Ql (U) Negative Normal NEGATIVE [facility] Comment on above: Performed By: #### E RUR, DRUGRPD #### [facility] [address] [place] [address] Dr. Indio Edwards Clarity (U) CLEAR Normal CLEAR [facility] Comment on above: Performed By: #### E RUR, DRUGRPD #### [facility] [address] [place] [address] Dr. Indio Edwards Color (U) YELLOW Normal YELLOW [facility] Comment on above: Performed By: #### E RUR, DRUGRPD #### [facility] [address] [place] [address] Dr. Indio LEWISAHMalaika A micrscopic examination will be performed if indicated. Normal [facility] Comment on above: Performed By: #### E RUR, DRUGRPD #### [facility] [address] [place] [address] Dr. Indio Edwards Glucose Ql (U) Negative Normal NEGATIVE [facility] Comment on above: Performed By: #### E RUR, DRUGRPD #### [facility] [address] [place] [address] Dr. Indio Edwards Hemoglobin Ql (U) SMALL Abnormal NEGATIVE [facility] Comment on above: Performed By: #### E RUR, DRUGRPD #### [facility] [address] [place] [address] Dr. Indio Edwards Ketones Ql (U) TRACE Abnormal NEGATIVE [facility] Comment on above: Performed By: #### E RUR, DRUGRPD #### [facility] [address] [place] [address] Dr. Indio Edwards LEUKOCYTES Negative Normal NEGATIVE [facility] Comment on above: Performed By: #### E RUR, DRUGRPD #### [facility] [address] [place] [address] Dr. Indio Edwards Nitrite Ql (U) Negative Normal NEGATIVE [facility] Comment on above: Performed By: #### E RUR, DRUGRPD #### [facility] [address] [place] [address] Dr. Indoi Edwards pH (U) 5.5 [pH] Normal 5-9 [facility] Comment on above: Performed By: #### E RUR, DRUGRPD #### [facility] [address] [place] [address] Dr. Indio Edwards SPEC GRAVITY >=1.030 Abnormal 1.005-<=1.02 5 [facility] Comment on above: Performed By: #### E RUR, DRUGRPD #### [facility] [address] [place] [address] Dr. Indio Edwards UA PROTEIN Negative Normal NEGATIVE/ TRACE [facility] Comment on above: Performed By: #### E RUR, DRUGRPD #### [facility] [address] [place] [address] Dr. Indio Edwards UR MICRO IND INDICATED Normal [facility] Comment on above: Performed By: #### E RUR, DRUGRPD #### [facility] [address] [place] [address] Dr. Indio Edwards Urobilinogen Qn (U) 0.2 {Talib'U}/dL Normal 0.2 - 1. 0 [facility] Comment on above: Performed By: #### E RUR, DRUGRPD #### [facility] [address] [place] [address] Dr. Indio Edwards URINE MICROSCOPIC ONLYon BACTERIA NONE SEEN Normal NONE SEEN [facility] Comment on above: Performed By: #### E RUR, DRUGRPD #### [facility] [address] [place] [address] Dr. Indio Edwards Bacteria identified Cx Nom (U) NOT INDICATED Normal [facility] Comment on above: Performed By: #### E RUR, DRUGRPD #### [facility] [address] [place] [address] Dr. Indio Edwards CAST NONE SEEN Normal NONE SEEN [facility] Comment on above: Performed By: #### E RUR, DRUGRPD #### [facility] [address] [place] [address] Dr. Indio Edwards Crystals LM Nom (Urine sed) NONE SEEN Normal NONE SEEN [facility] Comment on above: Performed By: #### E RUR, DRUGRPD #### [facility] [address] [place] [address] Dr. Indio Edwards Epithelial cells LM Ql (Urine sed) RARE Normal NONE SEEN /RARE [facility] Comment on above: Performed By: #### E RUR, DRUGRPD #### [facility] [address] [place] [address] Dr. Indio Edwards MUCOUS NONE SEEN Normal NONE SEEN [facility] Comment on above: Performed By: #### E RUR, DRUGRPD #### [facility] [address] [place] [address] Dr. Indio Edwards RBC 0-2 Normal 0-2 [facility] Comment on above: Performed By: #### E RUR, DRUGRPD #### [facility] [address] [place] [address] Dr. Indio Edwards WBC NONE SEEN Normal NONE SEEN [facility] Comment on above: Performed By: #### E RUR, DRUGRPD #### [facility] [address] [place] [address] Dr. Indio Edwards AMMONIAon 05-10-2021 Ammonia (P) [Mass/Vol] ug/dL Critically low 10-30 [facility] Comment on above: Performed By: #### A MM #### [facility] [address] [place] [address] Dr. Indio Edwards CARDIAC STANLEY ADMITon 022 CK [Catalytic activity/Vol] 117 U/L Normal 30-135 [facility] Comment on above: Performed By: #### E RUR, DRUGRPD #### [facility] [address] [place] [address] Dr. Indio Edwards CK.MB [Mass/Vol] 1.09 ng/mL Normal <=2.37 [facility] Comment on above: Performed By: #### E RUR, DRUGRPD #### [facility] [address] [place] [address] Dr. Indio Edwards HSTROP 5.8 pg/mL Normal 4.0-35.5 [facility] Comment on above: Result Comment: CUT- OFF POINTS HAVE BEEN ESTABLISHED BASED ON THE FOURTH UNIVERSAL DEFINITIONS OF MYOCARDIAL INFARCTION. THE UPPER REFERENCE LIMIT (URL) OF TROPONIN, DEFINED THE 99TH PERCENTILE OF cTnI DISTRIBUTION IN A REFERENCE POPULATION, HAS BEEN CONFIRMED THE DECISION THRESHOLD FOR [place] DIAGNOSIS. Performed By: #### E RUR, DRUGRPD #### [facility] [address] [place] [address] Dr. Indio Edwards ROLANDO 44.0 ng/mL Normal <=61.5 [facility] Comment on above: Performed By: #### E RUR, DRUGRPD #### [facility] [address] [place] [address] Dr. Indio Edwards CBC AUTO DIFFon 05-10-2021 BASO # 0.1 103/ul Normal 0.0-0.1 [facility] Comment on above: Performed By: #### E RUR, DRUGRPD #### [facility] [address] [place] [address] Dr. Indio Edwards Basophils/100 WBC (Bld) 0.7 % Normal 0.2-2.0 [facility] Comment on above: Performed By: #### E RUR, DRUGRPD #### [facility] [address] [place] [address] Dr. Indio Edwards EO # 0.2 103/ul Normal 0.0-0.7 [facility] Comment on above: Performed By: #### E RUR, DRUGRPD #### [facility] [address] [place] [address] Dr. Indio Edwards Eosinophils/100 WBC (Bld) 2.0 % Normal 0.9-7.0 [facility] Comment on above: Performed By: #### E RUR, DRUGRPD #### [facility] [address] [place] [address] Dr. Indio Edwards Erythrocyte distribution width (RBC) [Ratio] 12.1 % Normal 11.0-15.0 [facility] Comment on above: Performed By: #### E RUR, DRUGRPD #### [facility] [address] [place] [address] Dr. Indio Edwards Hematocrit (Bld) [Volume fraction] 48.8 % Critically high 36.0-48.0 [facility] Comment on above: Performed By: #### E RUR, DRUGRPD #### [facility] [address] [place] [address] Dr. Indio Edwards Hemoglobin (Bld) [Mass/Vol] 15.9 g/dL Normal 12.0-16.0 [facility] Comment on above: Performed By: #### E RUR, DRUGRPD #### [facility] [address] [place] [address] Dr. Indio Edwards IG # 0.04 10e3/ul Critically high 0.00-0.03 [facility] Comment on above: Performed By: #### E RUR, DRUGRPD #### [facility] [address] [place] [address] Dr. Indio Edwards IG % 0.4 % Normal 0.0-0.5 [facility] Comment on above: Performed By: #### E RUR, DRUGRPD #### [facility] [address] [place] [address] Dr. Indio Edwards LYMPH # 2.6 103/ul Normal 1.2-3.8 [facility] Comment on above: Performed By: #### Leia RUR, DRUGRPD #### [facility] [address] [place] [address] Dr. Indio Edwards Lymphocytes/100 WBC (Bld) 29.1 % Normal 20.5-60.0 [facility] Comment on above: Performed By: #### Leia RUR, DRUGRPD #### [facility] [address] [place] [address] Dr. Indio Edwards MANUAL DIFF REQ NO Normal [facility] Comment on above: Performed By: #### E RUR, DRUGRPD #### [facility] [address] [place] [address] Dr. Indio Edwards MCH (RBC) [Entitic mass] 31.0 pg Normal 26.7-34.0 [facility] Comment on above: Performed By: #### E RUR, DRUGRPD #### [facility] [address] [place] [address] Dr. Indio Edwards MCHC (RBC) [Mass/Vol] 32.6 g/dL Normal 29.9-35.2 [facility] Comment on above: Performed By: #### E RUR, DRUGRPD #### [facility] [address] [place] [address] Dr. Indio Edwards MCV (RBC) [Entitic vol] 95.1 fL Normal 81.0-99.0 [facility] Comment on above: Performed By: #### E RUR, DRUGRPD #### [facility] [address] [place] [address] Dr. Indio Edwards MONO # 0.5 103/ul Normal 0.3-0.8 [facility] Comment on above: Performed By: #### E RUR, DRUGRPD #### [facility] [address] [place] [address] Dr. Indio Edwards Monocytes/100 WBC (Bld) 5.6 % Normal 1.7-12.0 [facility] Comment on above: Performed By: #### E RUR, DRUGRPD #### [facility] [address] [place] [address] Dr. Indio Edwards NEUT # 5.6 103/ul Normal 1.4-6.5 [facility] Comment on above: Performed By: #### E RUR, DRUGRPD #### [facility] [address] [place] [address] Dr. Indio Edwards Neutrophils/100 WBC (Bld) 62.2 % Normal 43.0-75.0 [facility] Comment on above: Performed By: #### E RUR, DRUGRPD #### [facility] [address] [place] [address] Dr. Indio Edwards Platelet mean volume (Bld) [Entitic vol] 10.1 fL Normal 9.5-13.5 [facility] Comment on above: Performed By: #### E RUR, DRUGRPD #### [facility] [address] [place] [address] Dr. Indio Edwards PLT 307 103/ul Normal 150-450 [facility] Comment on above: Performed By: #### E RUR, DRUGRPD #### [facility] [address] [place] [address] Dr. Indio Edwards RBC 5.13 106/ul Normal 4.20-5.40 [facility] Comment on above: Performed By: #### Leia PABLO DRUGRPD #### [facility] [address] [place] [address] Dr. Indio Edwards WBC 8.9 103/ul Normal 4.0-11.0 [facility] Comment on above: Performed By: #### Leia PABLO DRUGRPD #### [facility] [address] [place] [address] HEAD WO CONon 05-10-2021 CT HEAD WO CON EXAM: CT head without contrast TECHNIQUE: Multiple helical CT images of the brain without intravenous contrast. Coronal and sagittal reformatted images were also acquired. Dose reduction techniques were achieved by using automated exposure control and/or adjustment of mA and/or kV according to patient size and/or use of iterative reconstruction technique. COMPARISON: None available HISTORY: DISORIENTATION, UNSPECIFIED FINDINGS: The ventricles and other CSF spaces are normal in size and configuration. No hemorrhage, extraaxial fluid collection or mass effect. The rivera-white matter differentiation is preserved throughout. No skull or imaged facial fracture. The paranasal sinuses are clear. The mastoid air cells are clear. Orbits are normal in appearance. The soft tissues of the head and face are normal. IMPRESSION: No acute intracranial findings. Electronically authenticated by: TARA INGRAM Date: 2021-05-10 21:38 Normal [facility] PROF 14(COMP METB)on 022 Albumin [Mass/Vol] 4.1 g/dL Normal 3.5-5.0 [facility] Comment on above: Performed By: #### Leia PABLO DRUGRPD #### [facility] [address] [place] [address] Dr. Indio Edwards Albumin/Globulin [Mass ratio] 1.2 {ratio} Normal [facility] Comment on above: Performed By: #### Leia PABLO DRUGRPD #### [facility] [address] [place] [address] Dr. Indio Edwards ALP [Catalytic activity/Vol] 82 U/L Normal 38-126 [facility] Comment on above: Performed By: #### E RUR, DRUGRPD #### [facility] [address] [address] [address] Indio Edwards ALT [Catalytic activity/Vol] 22 U/L Normal 9-52 [facility] Comment on above: Performed By: #### E RUR, DRUGRPD #### [facility] [address] [address] [address] Indio Edwards Anion gap [Moles/Vol] 13.2 mmol/L Normal [facility] Comment on above: Performed By: #### E RUR, DRUGRPD #### [facility] [address] [place] [address] Dr. Indio Edwards AST [Catalytic activity/Vol] 18 U/L Normal 14-36 [facility] Comment on above: Performed By: #### E RUR, DRUGRPD #### [facility] [address] [place] [address] Dr. Indio Edwards Bilirubin [Mass/Vol] 0.6 mg/dL Normal 0.2-1.3 [facility] Comment on above: Performed By: #### E RUR, DRUGRPD #### [facility] [address] [place] [address] Dr. Indio Edwards Calcium [Mass/Vol] 9.9 mg/dL Normal 8.4-10.2 [facility] Comment on above: Performed By: #### E RUR, DRUGRPD #### [facility] [address] [place] [address] Dr. Indio Edwards Chloride [Moles/Vol] 107 mmol/L Normal 98-107 [facility] Comment on above: Performed By: #### E RUR, DRUGRPD #### [facility] [address] [place] [address] Dr. Indio Edwards CO2 [Moles/Vol] 25.1 mmol/L Normal 22.0-30.0 [facility] Comment on above: Performed By: #### E RUR, DRUGRPD #### [facility] [address] [place] [address] Dr. Indio Edwards Creatinine [Mass/Vol] 0.89 mg/dL Normal 0.52-1.04 [facility] Comment on above: Performed By: #### E RUR, DRUGRPD #### [facility] [address] [place] [address] Dr. Indio Edwards EGFR-AF QATARI >60 Normal >=60 [facility] Comment on above: Performed By: #### E RUR, DRUGRPD #### [facility] [address] [place] [address] Dr. Indio Edwards EGFR-NON AF QATARI >60 Normal >=60 [facility] Comment on above: Performed By: #### E RUR, DRUGRPD #### [facility] [facility] [address] [place] [address] Dr. Indio Edwards Globulin (S) [Mass/Vol] 3.5 g/dL Normal [facility] Comment on above: Performed By: #### E RUR, DRUGRPD #### [facility] [address] [place] [address] Dr. Indio Edwards Glucose [Mass/Vol] 207 mg/dL Critically high 74-106 [facility] Comment on above: Performed By: #### E RUR, DRUGRPD #### [facility] [address] [place] [address] Dr. Indio Edwards Potassium [Moles/Vol] 3.3 mmol/L Critically low 3.4-5.0 [facility] Comment on above: Performed By: #### E RUR, DRUGRPD #### [facility] [address] [place] [address] Dr. Indio Edwards Protein [Mass/Vol] 7.6 g/dL Normal 6.1-8.2 [facility] Comment on above: Performed By: #### E RUR, DRUGRPD #### [facility] [address] [place] [address] Dr. Indio Edwards Sodium [Moles/Vol] 142 mmol/L Normal 137-145 [facility] Comment on above: Performed By: #### E RUR, DRUGRPD #### [facility] [address] [place] [address] Dr. Indio Edwards Urea nitrogen [Mass/Vol] 9.0 mg/dL Normal 7.0-17.0 [facility] Comment on above: Performed By: #### E RUR DRUGRPD #### [facility] [address] [address] [address] Indio Edwards Urea nitrogen/Creatinine [Mass ratio] 10.1 mg/mg Normal [facility] Comment on above: Performed By: #### Leia PABLO, DRUGRPD #### [facility] [address] [address] [address] Indio Edwards TSHon 05-10-2021 TSH 1.239 uIU/mL Normal 0.470-4.680 [facility] Comment on above: Performed By: #### Leia PABLO DRUGRPD #### [facility] [address] [place] [address] Dr. Indio Edwards TSH RANGE SEE BELOW Normal [facility] Comment on above: Result Comment: <0.3 4 UIU/ml HYPERTHYROID 0.34-5.60 UIU/ml EUTHYROID >5.60 UIU/ml HYPOTHYROID Performed By: #### Leia PABLO, DRUGRPD #### [facility] [address] [place] [address] Dr. Indio Edwards Vital Signs Date Time Vital Sign Value Performing Clinician Facility 12-21-2023 10:35-0400 Body height 165.1 cm PHYSICIAN NO [facility] 12-21-2023 10:18-0400 Body mass index (BMI) [Ratio] 24.7 kg/m2 PHYSICIAN NO [facility] 12-21-2023 10:18-0400 Body weight 67.58 kg PHYSICIAN NO [facility] 12-21-2023 10:18-0400 Diastolic blood pressure 66 mm[Hg] PHYSICIAN NO [facility] 12-21-2023 10:18-0400 Heart rate 75 /min PHYSICIAN NO [facility] 12-21-2023 10:18-0400 Systolic blood pressure 110 mm[Hg] PHYSICIAN NO [facility] 10-08-2023 14:49-0400 Body height 171.45 cm [facility] 10-08-2023 14:49-0400 Body mass index (BMI) [Ratio] 23.4 kg/m2 [facility] 10-08-2023 14:49-0400 Body weight 68.94 kg [facility] 10-08-2023 14:49-0400 Diastolic blood pressure 63 mm[Hg] [facility] 10-08-2023 14:49-0400 Heart rate 96 /min [facility] 10-08-2023 14:49-0400 Systolic blood pressure 96 mm[Hg] [facility] 04-27-2023 13:45-0500 Body height 171.45 cm Marium Velasquez Other [facility] [email or web address] Other 04-27-2023 13:45-0500 Body mass index (BMI) [Ratio] 24.84 kg/m2 Marium Velasquez Other [email or web address] [facility] [email or web address] Other 04-27-2023 13:45-0500 Body temperature 98.2 [degF] Marium Velasquez Other [email or web address] [facility] [email or web address] Other 04-27-2023 13:45-0500 Body weight 73.03 kg Marium Velasquez Other [facility] [employer] Other 04-27-2023 13:45-0500 Diastolic blood pressure 63 mm[Hg] Marium Velasquez Other [email or web address] [facility] [email or web address] Other 04-27-2023 13:45-0500 Systolic blood pressure 94 mm[Hg] Marium Velasquez Other [facility] [employer] Other 12-07-2022 11:15-0400 Body height 171.45 cm Marium Velasquez Other [facility] [employer] Other 12-07-2022 11:15-0400 Body mass index (BMI) [Ratio] 24.19 kg/m2 Marium Velasquez Other [facility] [employer] Other 12-07-2022 11:15-0400 Body weight 71.12 kg Marium Velasquez Other [facility] [employer] Other 12-07-2022 11:15-0400 Diastolic blood pressure 63 mm[Hg] Marium Velasquez Other [facility] [employer] Other 12-07-2022 11:15-0400 Systolic blood pressure 94 mm[Hg] Marium Velasquez Other [facility] [employer] Other 11-30-2022 14:45-0400 Body height 171.45 cm Marium Velasquez Other [facility] [employer] Other 11-30-2022 14:45-0400 Body mass index (BMI) [Ratio] 24.63 kg/m2 Marium Velasquez Other [facility] [employer] Other 11-30-2022 14:45-0400 Body weight 72.39 kg Marium Velasquez Other [facility] [employer] Other 11-30-2022 14:45-0400 Diastolic blood pressure 67 mm[Hg] Marium Velasquez Other [facility] [employer] Other 11-30-2022 14:45-0400 Systolic blood pressure 110 mm[Hg] Marium Velasquez Other [facility] [employer] Other Encounters Encounter Date Encounter Type Care Provider Facility Start: 05-21-2024 End: 05-21-2024 ambulatory [facility] Start: 03-05-2024 End: 03-05-2024 ambulatory [facility] Start: 01-09-2024 End: 01-09-2024 ambulatory [facility] Start: 12-21-2023 End: 12-21-2023 ambulatory PHYSICIAN NO [facility] Work Phone: Start: 12-21-2023 End: 12-21-2023 Patient encounter procedure PHYSICIAN NO [facility] Work Phone: Start: 12-19-2023 End: 12-19-2023 ambulatory JERED Vang [facility] Start: 12-18-2023 End: 12-18-2023 ambulatory [facility] Start: 12-18-2023 End: 12-18-2023 Subsequent hospital visit by physician Jenelle Howe MD Work Phone: [facility] Start: 12-08-2023 Non-patient / Non-visit PHYSICIAN NO [facility] Physician [facility] [employer] Work Phone: Start: 12-08-2023 ambulatory PHYSICIAN NO [facility] ility:[facility] Start: 12-08-2023 Registered Recurring PHYSICIAN NAWAF FINE [facility] Start: 12-06-2023 End: 12-06-2023 ambulatory JERED Vang [facility] Start: 10-08-2023 End: 10-08-2023 Departed Referred MD Marium Velasquez Work Phone: [facility] [place] Work Phone: Start: 10-08-2023 End: 10-08-2023 ambulatory Marium Velasquez [facility] Work Phone: Start: 10-08-2023 End: 10-08-2023 Patient encounter procedure [facility] Work Phone: Start: 09-18-2023 End: 09-18-2023 ambulatory JERED Vang [facility] Start: 04-27-2023 End: 04-27-2023 ambulatory Marium Velasquez Other [facility] [employer] Other Start: 04-27-2023 Office outpatient vi sit 15 minutes Marium Velasquez [facility] Start: 12-14-2022 End: 12-14-2022 ambulatory Marium Velasquez Other [facility] [employer] Other Start: 12-14-2022 Encounter for genera l adult medical examination without abnormal findings Marium Velasquez [facility] Start: 12-14-2022 Telephone encounter Marium Velasquez [facility] Start: 12-07-2022 End: 12-07-2022 ambulatory Marium Velasquez Other [facility] [employer] Other Start: 12-07-2022 Encounter for gynecological examination (general) (routine) without abnormal findings Marium Velasquez [facility] Start: 12-07-2022 Periodic preventive med est patient 40-64yrs Marium Velasquez [facility] Start: 11-30-2022 End: 11-30-2022 ambulatory Marium Velasquez Other [facility] [employer] Other Start: 11-30-2022 Office outpatient vi sit 15 minutes Marium Velasquez [facility] Start: 09-18-2021 End: 09-19-2021 ambulatory MIKEY JUAN Facility:[facility] Start: 05-10-2021 End: 05-11-2021 ambulatory MIKEY JUAN Facility:[facility] Procedures Date Procedure Procedure Detail Performing Clinician Start: 12-18-2023 Lipid panel Jenelle gibson MD Work Phone: Plan of Treatment Date Care Activity Detail Author Start: 12-17-2028 Lipid panel Lipids [facility] Start: 12-02-2023 COVID-19 Vaccine ( season) COVID-19 Vaccine ( season) [facility] Start: 11-01-2023 Influenza vaccination Flu vaccine (#1) [facility] Start: 10-08-2023 [facility] Start: 2023 Pneumococcal 65+ years Vaccine (1 of 1 - PCV) Pneumococcal 65+ years Vaccine (1 of 1 - PCV) [facility] Start: 2018 Respiratory Syncytial Virus (RSV) or age 60 yrs+ (1 - 1-dose 60+ series) Respiratory Syncytial Virus (RSV) or age 60 yrs+ (1 - 1-dose 60+ series) [facility] Start: 2013 Screening for osteoporosis DEXA (modify frequency per FRAX score) [facility] Start: 02-22-2008 Shingles vaccine (1 of 2) Shingles vaccine (1 of 2) [facility] Start: 2003 Screening for malignant neoplasm of colon [facility] Start: 1998 Screening for malignant neoplasm of breast Breast cancer screen [facility] Start: 02-22-1988 Screening for malignant neoplasm of cervix [facility] Start: 1979 Screening for malignant neoplasm of cervix Pap smear [facility] Start: 1977 DTaP/Tdap/Td vaccine (1 - Tdap) DTaP/Tdap/Td vaccine (1 - Tdap) [facility] Start: 02-22-1976 Hepatitis C screening Hepatitis C screen [facility] Start: 1973 HIV screening HIV screen [facility] Start: 1970 Depression Screen Depression Screen [facility] Chlamydia trachomati s rRNA [Presence] in Cervix by GAY with probe detection [facility] Human papilloma viru s 16+18+31+33+35+39+45+51+5 2+56+58+59+66+68 DNA [Presence] in Cervix by Probe with signal amplification [facility] Human papilloma viru s 16+18+31+33+35+39+45+51+5 2+56+58+59+68 DNA [Presence] in Cervix by Probe with signal amplification [facility] Neisseria gonorrhoea e rRNA [Presence] in Cervix by GAY with probe detection [facility] Payers Date Payer Category Payer Medicare [id number] 2022 Self-pay [id number] 1961 Medicaid [id number] 1960 Unknown [id number] 1958 Unknown [id number] 1958 Unknown [id number] [id number] 6 1958 Unknown [id number] 6 1958 Unknown [id number] 6 1958 Unknown [id number] [id number] 6 1958 Unknown [id number] [id number] 6 1958 Unknown [id number] [id number] 6 Unknown [id number] [id number] Unknown [facility] [id number] Unknown [id number] Unknown [id number] Worker's Compensation [id number] Social History Date Type Detail Facility Sex Assigned At [facility] Other Start: 07-31-2019 Tobacco smoking status NHIS Smoker (finding) [facility] Start: 1960 Sex Assigned At Female F [facility] Tobacco smoking status SDIS Tobacco smoking consumption unknown [facility] Start: 1960 Sex assigned at Not on file [facility] Evaluation note 04-27-2023 Note Date & Type Note Facility 04-27-2023 Evaluation note Encounter Date Diagnosis Assessment Notes Apr, Gastroenteritis (ICD-10 - K52.9) Given a note for 1 week off work, hopefully can return on 04/30. Get OTC imodium. Apr, URI, acute (ICD-10 - J06.9) Handwrote rx for zpack if symptoms worsen. Discussed OTC options as well. [facility] Other Evaluation note 12-14-2022 Note Date & Type Note Facility 12-14-2022 Evaluation note Encounter Date Diagnosis Assessment Notes Dec, Encounter for general adult medical examination without abnormal findings (ICD-10 - Z00.00) [facility] Other Evaluation note 12-07-2022 Note Date & Type Note Facility 12-07-2022 Evaluation note Encounter Date Diagnosis Assessment Notes Dec, Encounter for gynecological examination without abnormal finding (ICD-10 - Z01.419) Clinical impressions discussed. Monthly SBE advised along with yearly mammograms. Colon and osteoporosis screening reviewed and ordered if indicated (see preventative tab below). All questions answered to her satisfaction and patient sent home stable Dec, Screening mammogram for breast cancer (ICD-10 - Z12.31) Dec, Screening for colon cancer (ICD-10 - Z12.11) [facility] Other Evaluation note 11-30-2022 Note Date & Type Note Facility 11-30-2022 Evaluation note Encounter Date Diagnosis Assessment Notes Oct, Diarrhea, unspecified type (ICD-10 - R19.7) Diarrhea can be caused from several reasons, most often viral in nature; symptoms resolve usually after a few days. Watch for signs and symptoms of dehydration. Follow diet recommendations given in office today and may try probiotic over the counter or yogurt added to your diet. If no improvement follow up with primary care provider is needed to rule out more complex infections. 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 Surgical History HYSTERECTOMY W/O BSO Hospitalization History SEE SURGICAL HX [facility] Other Summary Purpose Family History No Family History Records FoundNo Family History Records FoundNo Family History Records FoundNo Family History Records FoundNo Family History Records Found Advance Directives No Advanced Directives Records Found Advance Directive Response Recorded Date/ Time Advance Directives No July 29, 2 020 1:23pm Reason for Referral Reason 12/14/22 @ 10 scre ening colonoscopy Diagnosis 1 Screening for colon cancer (Z12.11) Referral Organization [facility] Referring Provider First Name Marium Referring Provider Last Name Ron Referring Provider Specialty [facility] cine Ref[facility] Referred Provider Christoph Valenzuela Referred Address [address] [place],[address] Referred Provider Specialty General Surg mayelin Referral Priority Routine Referral Appointment Date 2022-12-14 General Notes Ayde Fernández 11:31:15 AM >received today, insurance attached, waiting for notes to be locked to fax Ayde Fernández 12/12/2022 09:22:56 AM >SENT TE TO LOCK NOTES Ayde Fernández 12/13/2022 03:04:20 PM >received vm from pt that she is scheduled for 12/14 @ [address] Valenzuela but they needed the referral faxed over still. I was waiitng for notes to be lcoked, and now they are. referral has been faxed over Ayde Fernández 12/15/2022 03:24:18 PM >faxed first request for Ayde Degroot 12/18/2022 01:11:59 PM >notes received, and sent for review. closing out referral Clinical Notes F: [id number] Chief Complaint and Reason for Visit Chief Complaint STD concerns Reason for Visit Screening examinatio n for STI Chief Complaint STD concerns Encounter for screening examination for sexually t Reason for Visit Screening examinatio n for STI Chief Complaint STD concerns Encounter for screening examination forZ11.2 [facility] Reason for Visit Screening examinatio n for STI Additional Source Comments INFORMATION SOURCE (unrecogn ized section and content) DATE CREATED AUTHOR 05/13/2021 [facility] DATE CREATED AUTHOR AUTHOR'S ORGANIZ ATION 09/20/2021 [facility] DATE CREATED AUTHOR AUTHOR'S ORGANIZ ATION 12/13/2023 [facility] DATE CREATED AUTHOR AUTHOR'S ORGANIZ ATION 12/19/2023 [facility] DATE CREATED AUTHOR AUTHOR'S ORGANIZ ATION 05/23/2024 [facility] REASON FOR VISIT (unrecogniz ed section and content) Diarrhealab [employer]ness[employer] iting, Diarrhea Care Teams (unrecognized sec tion and content) Team Status: Active Member Role Status Dates Marium Velasquez MD Primary Care Provider Active Team Status: Inactive Member Role Status Dates Marium Velasquez MD Primary Care Provide r, Attending Provider Active Start: October 08, 2023 End: October 08, 2023 Team Status: Inactive Member Role Status Dates Marium Velasquez MD Attending Provider Active St art: October 08, 2023 End: October 08, 2023 Team Status: Active Member Role Status Dates PHYSICIAN NO FAMILY Primary Care Provider Active Start: December 08, 2023 Landry Burnett MD Attending Provider Active Start: December 08, 2023 Team Status: Active Member Role Status Dates Louisa Watkins MD Attending Provider Active Sta rt: December 08, 2023 Team Status: Inactive Member Role Status Dates Marium Velasquez MD Primary Care Provide r, Attending Provider Active Start: December 21, 2023 End: December 21, 2023 Pit Clerk Relationship Specialty Start Date End Date Jenelle Howe MD [address] [place] [address] PCP - General Psychiatry 08/27/20 Goals (unrecognized section and content) Goals may be documented in a n alternate section FOR RECORDS PERTAINING TO PATIENTS WHO ARE OR HAVE BEEN ENROLLED IN A CHEMICAL DEPENDENCY/SUBSTANCEABUSE PROGRAM, SOME INFORMATION MAY BE OMITTED. This clinical summary was aggregated from multiple sources. Caution should be exercised in using it in the provision of clinical care. This summary normalizes information from multiple sources, and as a consequence, information in this document may materially change the coding, format and clinical context of patient data. In addition, data may be omitted in some cases. CLINICAL DECISIONS SHOULD BE BASED ON THE PRIMARY CLINICAL RECORDS. [facility]. provides no warranty or guarantee of the accuracy or completeness of information in this document.
[2024-05-27 11:42] LABS: Bilirubin Urine NEGATIVE (NEGATIVE); Blood Urine SMALL (NEGATIVE); Clarity Urine CLEAR (CLEAR); Color Urine LT. YELLOW (YELLOW); Glucose Urine UA NEGATIVE (NEGATIVE); Ketones Urine NEGATIVE (NEGATIVE); Leukocyte Esterase Urine TRACE (NEGATIVE); Nitrite Urine NEGATIVE (NEGATIVE); Protein Urine NEGATIVE (NEG/TRACE); Specific Gravity Urine <=1.005 (1.005-1.025); Urobilinogen Urine 0.2 EU/dL (0.2-1.0); pH Urine 5.5 (5.0-9.0)
[2024-05-27 11:54] LABS: Bacteria Urine TRACE #/HPF (NONE SEEN); WBC Urine 0-2 #/HPF (NONE SEEN)
[2024-05-27 11:55] LABS: Cast Seen? NONE SEEN #/LPF (NONE SEEN); Crystals Seen? None Seen #/HPF (None Seen); Mucus Urine NONE SEEN (NONE SEEN); Squamous Epithelial Cell Urine MODERATE #/LPF (NONE/RARE); Urine Culture Indicated ALREADY ORDERED
== END 2024-05-27 10:54 | disposition home or self-care (01) ==
LOC: LAB 10:58
PROVIDERS: PCP Family Medicine; Visit Provider Family Medicine
DX: R30.0 Dysuria (principal)
CPT/HCPCS: 81001; 87086